=== PATIENT | female | born 1955 | race African-American/Black ===

== ENCOUNTER 2017-02-26 08:22 | Inpatient (IN) ==
[2017-02-26] MEDS ORDERED: SODIUM CHLORIDE 0.9% 1,000 ML IV STA (08:40)
[2017-02-26] MEDS ORDERED: PANTOPRAZOLE 40 MG VIAL IV STA (08:40)
[2017-02-26] MEDS ORDERED: PANTOPRAZOLE 40 MG VIAL IV ONE (08:51)
--- NOTE | 2017-02-26 09:16 | XRay Report ---
Single view the chest. Indication: Shortness of breath. Comparison: October 22, 2016. The heart is normal in size. The pulmonary vasculature is normal. The lung solorzano are mildly hyperexpanded. There is an increase in interstitial markings, identical to the previous study, consistent with scarring. No consolidation, pneumothorax, or pleural effusion. Impression: Chronic lung changes. No acute abnormality. PROCEDURE INTERPRETED AT [facility] DEPARTMENT OF RADIOLOGY Final Report Signed by: Dr. Anna Valdez
--- NOTE | 2017-02-26 09:18 | EKG Report ---
Stationary ECG Study [facility] ER Test Date: 02/26/2017 9:15:23 AM Pat Name: TIERA BORREGO Department: Room: Gender: F Web Operations Specialist: RUDOLPH : 1955 Requested by: Onur Cornell Order Number: [id number] Reading MD: SRINIVAS NARANJO Intervals [place] Rate: 83 P: 72 RI: 172 QRS: 30 QRSD: 85 T: 62 QT: 399 QTc: 438 Interpretive Statements SINUS RHYTHM Electronically Signed On 03-02-17 22:07:49 CDT by SRINIVAS NARANJO [email or web address]
--- NOTE | 2017-02-26 09:18 | XRay Report ---
Abdomen series with decubitus films. Indication: Generalized abdominal pain. Comparison: October 23, 2016. Within the lung bases, there are changes suggesting honeycombing, better appreciated on the abdomen film than the chest x-ray. No intra-abdominal organomegaly is seen. There is a air in normal caliber small and large intestine, with a few air-fluid levels, and no evidence of obstruction or free air. The osseous structures are diffusely demineralized. Degenerative changes are present at the right hip. Impression: Chronic lung changes at the bases. Mild ileus. PROCEDURE INTERPRETED AT [facility] DEPARTMENT OF RADIOLOGY Final Report Signed by: Dr. Anna Valdez
--- NOTE | 2017-02-26 09:20 | Emergency Department Note ---
Ronald Gordillo Ashley, am scribing for, and in the presence of, Onur Iqbal MD 08 :51. Farida Gordillo James D, MD, personally performed the services described in this documentation, ascribed by Shanel Cardenas in my presence, and it is both accurate and complete 920 . Arrival - Arrival Chief Complaint: GI Bleed/Rectal Stated Complaint: gi bleed ED Nursing Triage Note: Pt states that she started having some nausea and vomiting with chills - pt has black stools - pt denies abd pain - pt has seen Dr Rajan in the past for this same c/o Mode of Arrival: Stretcher Time Seen by Provider: 02/26/17 08:37 - History of Present Illness HPI Narrative: Ms. 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 She reports having the same symptoms in the past with a small bowel ANV rupture, which required blood transfusions and surgical cauterization by Dr. Rajan. She states "I still have 3 AVNs that have not been fixed." She denies SOB, CP, n/v, fever, headache, and dysuria. Allergies/Adverse Reactions: Allergies Allergy/AdvReac Type Severity Reaction Status Date / Time Penicillins Allergy Unknown/Unable Verified 07/21/16 19:53 to obtain Home Medications: Home Medications Medication Instructions Recorded Confirmed Type Duloxetine HCl [Cymbalta] 60 mg PO QOTHER DAY 04/25/15 02/26/17 History Ferrous Gluconate 324 mg PO BID 04/25/15 02/26/17 History HYDROcodone/ACETAMIN 10-325 [[place] 1 tablet PO Q6H PRN 04/25/15 02/26/17 History 10-325] Hydroxychloroquine [Plaquenil] 200 mg PO DAILY 04/25/15 02/26/17 History LORazepam TAB [Ativan Tab] 1 mg PO ONCE PRN 04/25/15 02/26/17 History Omeprazole [Prilosec] 20 mg PO BID 04/25/15 02/26/17 History Valsartan [Diovan] 160 mg PO QAM 04/25/15 02/26/17 History Zolpidem Tartrate 10 mg PO BEDTIME PRN 04/25/15 02/26/17 History Mycophenolate Mofetil [Cellcept] 500 mg PO QOTHER DAY 07/14/16 02/26/17 History Rosuvastatin [Crestor] 10 mg PO BEDTIME 07/14/16 02/26/17 History Aspirin [Ecotrin] 81 mg PO QAM 10/20/16 02/26/17 History Amitriptyline [Elavil] 75 mg PO BEDTIME 10/22/16 02/26/17 History Naltrexone HCl [Revia] 50 mg PO DAILY 10/22/16 02/26/17 History Pregabalin [Lyrica] 75 mg PO QOTHER DAY 10/22/16 02/26/17 History Quetiapine Fumarate [Quetiapine 100 mg PO BEDTIME PRN 02/26/17 02/26/17 History Fumarate] Review of System - Review of System Constitutional: Present: weakness. Absent: chills, fever Eyes: Absent: discharge, vision change Head/Ears/Nose/Throat: Present: see HPI Respiratory: Absent: cough, respiratory distress Cardiovascular: Absent: chest pain, palpitations Gastrointestinal: Present: abdominal pain, melena. Absent: nausea, vomiting, hematemesis Genitourinary female: Absent: dysuria, hematuria Musculoskeletal: Absent: back pain, neck pain Skin: Absent: rash, lesions Neurological: Absent: headache, weakness, numbness, paresthesias Psychiatric: Present: as per HPI Endocrine: Present: as per HPI Hematological/Lymphatic: Present: as per HPI Medical,Surgical,& Family Hx - Medical History Cardio: History of: CHF, Hypertension, Cardiovascular Problems (CHF) No history of: [place] Psychological: History of: Depression Neurology: History of: Cerebrovascular Accident (mini stroke) No history of: Seizures Endocrine: History of: Thyroid Disorder Rheumatology: History of;: Fibromyalgia, Myasthenia Gravis (diagnosis several years ago), Rheumatoid Arthritis, Systemic Lupus Erythematosus, Rheumatological Problems (Lupus) Respiratory: History of: Pneumonia, Respiratory Problems Gastrointestinal: History of: GERD, Gastrointestinal Bleed (Small bowel AVMs) Musculoskeletal: No history of: Amputation Hematology: History of: Anemia Reproductive: History of: Ovarian Cysts Other: History of: Miscellaneous Medical Problems (lupus) - Surgical History Cardiac Surgeries: Patient Denies: Cardiac Catheterization Thoracic Surgeries: Patient denies;: Organ Transplant, Lobectomy Neurologic Surgeries: Patient denies: Neurologic Surgery HEENT Surgeries: Patient denies: Tonsilectomy & Adenoidectomy Abdominal Surgeries: Patient denies: Abdominal Surgery Reproductive Surgeries: Surgical HX of;: Hysterectomy Patient denies;: Genitourinary Surgery Additional Surgical History: Small bowel AVN carterized. - Family History Family History: Reports;: Family Anesthesia Reaction (dad), Family Hypertension , Family Psychiatric Problems (Mother dementia) Denies;: Family Stroke - Social History Smoking Status: Never smoker Frequency of Alcohol Use: None Type of Drug Use: None Marital Status: Lives With:: Spouse Functional capacity: independent ambulation Exam Vital Signs: Vital Signs Temperature 96.0 F L 02/26/17 08:38 Pulse Rate 95 H 02/26/17 11:00 Respiratory Rate 18 02/26/17 11:00 Blood Pressure 120/44 02/26/17 11:00 O2 Sat by Pulse Oximetry 100 02/26/17 11:00 - General General appearance: alert, in no apparent distress - Head Head exam: Present: atraumatic, normocephalic, normal inspection - Eye Eye exam: Present: PERRL, EOMI, other (conjunctival pallor) - ENT ENT exam: Present: mucous membranes dry, other (Pale muscous membranes) - Neck Neck exam: Present: normal inspection, full ROM, trachea midline - Chest Chest inspection: Present: normal inspection, symmetric chest wall rise - Respiratory Respiratory exam: Present: normal lung sounds bilaterally. Absent: rales, rhonchi, wheezes - Cardiovascular Cardiovascular exam: Present: regular rate, normal rhythm, normal heart sounds - Abdominal Exam Abdominal exam: Absent: soft, distention, tenderness, guarding, rebound, rigidity - Extremities Exam Extremities exam: Present: normal inspection, full ROM - Back Exam Back exam: Present: normal inspection, full ROM - Neurological Exam Neurological exam: Present: alert, oriented X3, CN II-XII intact - Psychiatric Psychiatric exam: Present: normal affect, normal mood - Skin Skin exam: Present: warm, dry, pallor Course - Consultations Consultation #1: 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 Time: 09:47 Consultation #2: Discussed with hospitalist. Patient will be admitted to their service. Time: 11:21 Results - Labs CBC & BMP: 02/26/17 10:44 Lab Results: I have reviewed the patients labs Labs: Laboratory Tests 02/26/17 11:13 INR 1.1 - EKG EKG results: interpreted by ERMD - Impressions EKG: Normal sinus rhythm with a rate of 83, nonspecific ST-T wave changes, normal axis. - Diagnostic Findings Procedure: Abdominal x-ray: image reviewed by me (Nonspecific gas pattern, no free air, gas in the rectum), Chest x-ray: image reviewed by me (No cardiomegaly , no pleural effusions, no infiltrates.) Disposition Clinical Impression: Upper GI bleed, Small bowel arteriovenous malformation, Anemia Case discussed with: patient, patient's family Disposition: Still a Patient Condition: Stable Time of Disposition: 11:20
[2017-02-26 10:54] LABS: Basophils % 0.2 % (0.0-0.8); Eosinophils # 0.1 10*3/uL (0.0-0.87); Eosinophils % 0.5 % (0.00-10.9); Hematocrit 26.5 VOL% (35.7-47.0); Hemoglobin 8.5 GM/DL (12.0-16.0); Immature Granulocytes % 3.5 %; Immature Granulocytes Absolute 0.33 #; Lymphocytes % 10.6 % (21.3-54.2); Mean Corpuscular HGB Conc 32.1 GM/DL (32-36); Mean Corpuscular Hemoglobin 26 PG (27-34); Mean Corpuscular Volume 79.8 FL (87-102); Mean Platelet Volume 10.4 FL (9.6-12.0); Monocytes # 0.7 10*3/uL (0.11-0.8); Monocytes % 6.9 % (1.7-12.7); Neutrophils # 7.5 10*3/uL (1.4-7.4); Neutrophils % 78.3 % (38.7-73.9); Platelet Count 221 T/CUMM (130-400); Red Blood Count 3.32 MC/CUMM (3.8-5.5); Red Cell Distribution Width 12.7 % (9.3-17.3); White Blood Count 9.5 T/CUMM (4-12)
[2017-02-26 11:01] LABS: INR 1.1; PT Patient Result 11.3 SECS; Partial Thromboplastin Time 22.4 SECS (0-40)
[2017-02-26 11:25] LABS: Alanine Aminotransferase 13 U/L (13-56); Albumin 2.6 G/DL (3.4-5.0); Alkaline Phosphatase 75 U/L (45-117); Aspartate Amino Transferase 9 U/L (0-37); Bilirubin,Total < 0.39 MG/DL (0.2-1.0); Blood Urea Nitrogen 51 MG/DL (7-18); Calcium 7.7 MG/DL (8.5-10.1); Glucose 98 MG/DL (74-106); Osmolality,Calculated 296.1 MOS/KG (273-304); Potassium 4.7 MMOL/L (3.5-5.1); Sodium 142 MMOL/L (136-145); Total Protein 5.3 G/DL (6.4-8.3)
--- NOTE | 2017-02-26 13:03 | Gastrointestinal Consult Note ---
<Bridget Kelly - Last Filed: 02/26/17 12:54> Assessment and Plan (1) Melena Status: Acute Assessment and plan: 4/5-onset of dark tarry stools on yesterday with lower abdominal pain and cramping. 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 Last endoscopy September 2016 with treatment of AVMs. Hemoglobin 8.6. Continue to monitor serial hemoglobin and transfuse as needed. Plan for EGD tomorrow morning to further evaluate. If active bleeding began's, obtain stat CT bleeding scan. Plan an addendum to follow by Dr. Rajan per Current Visit: Yes (2) Symptomatic anemia Status: Resolved Current Visit: No History of Present Illness Chief complaint: Melena, anemia History of present illness: Ms. Ray is a 61 year old female who presented to the hospital with onset of dizziness, melena, and generalized weakness. Patient states that Friday she began not feeling very well and had some episodes of being lightheaded. She also reports just generally not feeling well and having some weakness. This continued until yesterday when she had onset of dark tarry stools. She also had some nausea without vomiting but does report having frequent regurgitation every time she tried to eat or drink something. Patient states she became very dizzy and weak this morning and her called an ambulance. She states when EMS arrived her blood pressure was 60/40. She has a history of CKD, lupus , as well as small bowel AVMs. She denies any shortness of breath, chest pain, fever, or chills. She denies any recent weight loss. She states she has had some lower abdominal discomfort since onset as well as some low back pain. Denies symptoms of UTI at present. Denies hematochezia. Denies vomiting. Denies NSAID use. States that this episode feels very similar to the episodes in the past in which she presented with anemia and AVM bleeding. She was last admitted in September of last year with GI bleed and underwent EGD at that time. She was found to have small bowel AVMs with destruction and clipping. Prior to this in June of last year she had a small bowel endoscopy done with findings of recurrent bleeding from duodenal AVMs with no active bleeding, submucosal duodenal lesion without bleeding. Last colonoscopy noted in April 2015 with findings of diverticulosis. Hemoglobin on admission is 8.5. BUN/ creatinine ratio 39. Last known hemoglobin in October of last year 8.9 on discharge from inpatient stay. Patient has a history of blood transfusions in the past related to the AVMs. Home Medications Medication Instructions Recorded Confirmed Type Duloxetine HCl [Cymbalta] 60 mg PO QOTHER DAY 04/25/15 02/26/17 History Ferrous Gluconate 324 mg PO BID 04/25/15 02/26/17 History HYDROcodone/ACETAMIN 10-325 [[place] 1 tablet PO Q6H PRN 04/25/15 02/26/17 History 10-325] Hydroxychloroquine [Plaquenil] 200 mg PO DAILY 04/25/15 02/26/17 History LORazepam TAB [Ativan Tab] 1 mg PO ONCE PRN 04/25/15 02/26/17 History Omeprazole [Prilosec] 20 mg PO BID 04/25/15 02/26/17 History Valsartan [Diovan] 160 mg PO QAM 04/25/15 02/26/17 History Zolpidem Tartrate 10 mg PO BEDTIME PRN 04/25/15 02/26/17 History Mycophenolate Mofetil [Cellcept] 500 mg PO QOTHER DAY 07/14/16 02/26/17 History Rosuvastatin [Crestor] 10 mg PO BEDTIME 07/14/16 02/26/17 History Aspirin [Ecotrin] 81 mg PO QAM 10/20/16 02/26/17 History Amitriptyline [Elavil] 75 mg PO BEDTIME 10/22/16 02/26/17 History Naltrexone HCl [Revia] 50 mg PO DAILY 10/22/16 02/26/17 History Pregabalin [Lyrica] 75 mg PO QOTHER DAY 10/22/16 02/26/17 History Quetiapine Fumarate [Quetiapine 100 mg PO BEDTIME PRN 02/26/17 02/26/17 History Fumarate] Allergies Allergy/AdvReac Type Severity Reaction Status Date / Time Penicillins Allergy Unknown/Unable Verified 07/21/16 19:53 to obtain Medical,Surgical,& Family Hx - Medical History Cardio: History of: CHF, Hypertension, Cardiovascular Problems (CHF) No history of: [place] Psychological: History of: Depression Neurology: History of: Cerebrovascular Accident (mini stroke) No history of: Seizures Endocrine: History of: Thyroid Disorder Rheumatology: History of;: Fibromyalgia, Myasthenia Gravis (diagnosis several years ago), Rheumatoid Arthritis, Systemic Lupus Erythematosus, Rheumatological Problems (Lupus) Respiratory: History of: Pneumonia, Respiratory Problems Gastrointestinal: History of: GERD, Gastrointestinal Bleed (Small bowel AVMs) Musculoskeletal: No history of: Amputation Hematology: History of: Anemia Reproductive: History of: Ovarian Cysts Other: History of: Miscellaneous Medical Problems (lupus) - Surgical History Cardiac Surgeries: Patient Denies: Cardiac Catheterization Thoracic Surgeries: Patient denies;: Organ Transplant, Lobectomy Neurologic Surgeries: Patient denies: Neurologic Surgery HEENT Surgeries: Patient denies: Tonsilectomy & Adenoidectomy Abdominal Surgeries: Patient denies: Abdominal Surgery Reproductive Surgeries: Surgical HX of;: Hysterectomy Patient denies;: Genitourinary Surgery - Family History Family History: Reports;: Family Anesthesia Reaction (dad), Family Hypertension , Family Psychiatric Problems (Mother dementia) Denies;: Family Stroke - Social History Smoking Status: Never smoker Frequency of Alcohol Use: None Type of Drug Use: None 12 point system: reviewed and no additional remarkable complaints except as stated - Constitutional Constitutional: Present: as per HPI, lethargy, weakness - EENT Eyes: Present: as per HPI Ears: Present: as per HPI Nose, mouth and throat: Present: as per HPI - Cardiovascular Cardiovascular: Present: as per HPI - Respiratory Respiratory: Present: as per HPI - Gastrointestinal Gastrointestinal: Present: as per HPI, nausea - Genitourinary Genitourinary: Present: as per HPI - Musculoskeletal Musculoskeletal: Present: as per HPI - Neurological Neurological: Present: as per HPI, dizziness - Psychiatric Psychiatric: Present: as per HPI - Endocrine Endocrine: Present: as per HPI - Hematologic/Lymphatic Hematologic/Lymphatic: Present: as per HPI Exam - Constitutional Vitals: Period Temp Pulse Resp BP Sys/Landa Pulse Ox Last 24 Hr 90 18 103/45 100 General appearance: normal weight, no acute distress - Head Head exam: Present: normal inspection, normocephalic - Eye Eye exam: Present: other (Lids and conjunctivae unremarkable). Absent: scleral icterus - ENT ENT exam: Present: normal exam, normal oropharynx - Neck Neck exam: Present: normal inspection - Respiratory Respiratory exam: Present: clear to auscultation bilaterally. Absent: rales, rhonchi, wheezes - Cardiovascular Cardiovascular exam: Present: regular rate and rhythm. Absent: diastolic murmur , JVD, systolic murmur - GI/Abdominal GI/Abdominal exam: Present: normal bowel sounds, soft. Absent: ascites, distended, mass, organomegaly, tenderness - Extremities Exam Extremities exam: Present: normal inspection, full ROM - Back Exam Back exam: Present: normal inspection - Neurological Exam Neurological exam: Present: alert, oriented X3 - Psychiatric Psychiatric exam: Present: normal affect, normal mood - Skin Skin exam: Present: normal color, warm, dry Results - Labs CBC & BMP: 02/26/17 10:44 02/26/17 10:44 Lab Results: I have reviewed the past 24 hour labs <Santiago Rajan - Last Filed: 02/26/17 18:50> History of Present Illness History of present illness: Ms. Ray is a 61 year old female Exam - Constitutional Vitals: Period Temp Pulse Resp BP Sys/Landa Pulse Ox Last 24 Hr 97.4 F-98.7 F 76-98 16-18 102-114/45-75 100-100 Results - Labs CBC & BMP: 02/26/17 13:23 02/26/17 10:44
[2017-02-26 13:47] LABS: Hematocrit 28.8 VOL% (35.7-47.0); Hemoglobin 9.2 GM/DL (12.0-16.0)
--- NOTE | 2017-02-26 13:49 | Hospitalist History & Physical ---
<Consuelo Jonesda - Last Filed: 02/26/17 13:32> Assessment and Plan (1) Anemia Status: Acute Assessment and plan: Will recheck H/H in AM. Will transfuse if needed. Current Visit: Yes Qualifiers: Anemia type: unspecified type Qualified Code(s): D64.9 - Anemia, unspecified (2) Melena Status: Acute Assessment and plan: Will admit under the hospitalist services. We will replace volume, start PPI's, and VTE prophylaxis. Will consult GI, Hematology, and Cardiology to assist in the management of this patient. Will obtain CBC in AM; will transfuse if needed. Current Visit: Yes History of Present Illness Chief complaint: "bloody stools" History of present illness: This is a very pleasant 61 year old female that presented to the ED this morning with a chief compliant of bloody stools. She has a rather impressive medical history of small bowel AVM, systemic lupus erythematosus, rheumatoid arthritis, heart failure, and Stage II kidney disease. She reports an onset of bloody stools on Friday. She reports the stools started sporadically; then gradually increased this morning. She reported at least 3 stools this morning; in which she became weak. She had to be assisted by her to the toilet and then became so weak that she was unable to get up. Her called for emergency assistance and she was transported to [facility] for further evaluation. Upon arrival, she was found to be mildly hypotensive with SBP in the 90's. Her volume was replaced and her blood pressures improved. Her H/H was 8.5/26.5 at the time of arrival. After further discussion with Dr. Iqbal, it was determined that the patient required inpatient admission for evaluation of lower gastrointestinal bleed, hypotension, and acute blood loss. We will consult Dr. Payan and Dr. Butler, both are known to this patient to aid in the management of this patient. Home Medications Medication Instructions Recorded Confirmed Type Duloxetine HCl [Cymbalta] 60 mg PO QOTHER DAY 04/25/15 02/26/17 History Ferrous Gluconate 324 mg PO BID 04/25/15 02/26/17 History HYDROcodone/ACETAMIN 10-325 [[place] 1 tablet PO Q6H PRN 04/25/15 02/26/17 History 10-325] Hydroxychloroquine [Plaquenil] 200 mg PO DAILY 04/25/15 02/26/17 History LORazepam TAB [Ativan Tab] 1 mg PO ONCE PRN 04/25/15 02/26/17 History Omeprazole [Prilosec] 20 mg PO BID 04/25/15 02/26/17 History Valsartan [Diovan] 160 mg PO QAM 04/25/15 02/26/17 History Zolpidem Tartrate 10 mg PO BEDTIME PRN 04/25/15 02/26/17 History Mycophenolate Mofetil [Cellcept] 500 mg PO QOTHER DAY 07/14/16 02/26/17 History Rosuvastatin [Crestor] 10 mg PO BEDTIME 07/14/16 02/26/17 History Aspirin [Ecotrin] 81 mg PO QAM 10/20/16 02/26/17 History Amitriptyline [Elavil] 75 mg PO BEDTIME 10/22/16 02/26/17 History Naltrexone HCl [Revia] 50 mg PO DAILY 10/22/16 02/26/17 History Pregabalin [Lyrica] 75 mg PO QOTHER DAY 10/22/16 02/26/17 History Quetiapine Fumarate [Quetiapine 100 mg PO BEDTIME PRN 02/26/17 02/26/17 History Fumarate] Allergies Allergy/AdvReac Type Severity Reaction Status Date / Time Penicillins Allergy Unknown/Unable Verified 07/21/16 19:53 to obtain Medical,Surgical,& Family Hx - Medical History Cardio: History of: CHF, Hypertension, Cardiovascular Problems (CHF) No history of: [place] Psychological: History of: Depression Neurology: History of: Cerebrovascular Accident (mini stroke) No history of: Seizures Endocrine: History of: Thyroid Disorder Rheumatology: History of;: Fibromyalgia, Myasthenia Gravis (diagnosis several years ago), Rheumatoid Arthritis, Systemic Lupus Erythematosus, Rheumatological Problems (Lupus) Respiratory: History of: Pneumonia, Respiratory Problems Gastrointestinal: History of: GERD, Gastrointestinal Bleed (Small bowel AVMs) Musculoskeletal: No history of: Amputation Hematology: History of: Anemia Reproductive: History of: Ovarian Cysts Other: History of: Miscellaneous Medical Problems (lupus) - Surgical History Cardiac Surgeries: Patient Denies: Cardiac Catheterization Thoracic Surgeries: Patient denies;: Organ Transplant, Lobectomy Neurologic Surgeries: Patient denies: Neurologic Surgery HEENT Surgeries: Patient denies: Tonsilectomy & Adenoidectomy Abdominal Surgeries: Patient denies: Abdominal Surgery Reproductive Surgeries: Surgical HX of;: Hysterectomy Patient denies;: Genitourinary Surgery Orthopedic Surgeries: Surgical HX of;: Orthopedic Surgery (carpal tunnel bilat hands) - Family History Family History: Reports;: Family Anesthesia Reaction (dad), Family Hypertension , Family Psychiatric Problems (Mother dementia) Denies;: Family Stroke - Social History Smoking Status: Never smoker Frequency of Alcohol Use: None Type of Drug Use: None - Constitutional Constitutional: Present: fatigue, malaise, weakness - Respiratory Respiratory: Absent: cough, dyspnea, wheezing, snoring - Gastrointestinal Gastrointestinal: Present: abdominal pain, change in bowel habits, cramping, diarrhea, melena. Absent: heartburn, vomiting - Genitourinary Genitourinary: Present: as per HPI - Musculoskeletal Musculoskeletal: Present: as per HPI - Neurological Neurological: Present: as per HPI - Psychiatric Psychiatric: Present: as per HPI - Endocrine Endocrine: Present: as per HPI - Hematologic/Lymphatic Hematologic/Lymphatic: Present: as per HPI Exam - Constitutional Vitals: Period Temp Pulse Resp BP Sys/Landa Pulse Ox Last 24 Hr 98.7 F 88-98 18-18 102-111/45-75 100-100 General appearance: normal weight, no acute distress - Head Head exam: Present: normal inspection, normocephalic, atraumatic - Eye Eye exam: Present: EOMI Pupils: Present: LISA - ENT ENT exam: Present: normal exam - Neck Neck exam: Present: normal inspection. Absent: lymphadenopathy, meningismus, tenderness, thyromegaly - Respiratory Respiratory exam: Present: clear to auscultation bilaterally. Absent: rales, rhonchi, stridor, wheezes - Cardiovascular Cardiovascular exam: Present: regular rate and rhythm. Absent: carotid bruit, diastolic murmur, gallop, JVD, rubs, systolic murmur - GI/Abdominal GI/Abdominal exam: Present: normal bowel sounds, tenderness - Extremities Exam Extremities exam: Present: normal inspection, full ROM - Back Exam Back exam: Present: normal inspection - Neurological Exam Neurological exam: Present: alert, oriented X3, CN II-XII intact - Psychiatric Psychiatric exam: Present: normal affect - Skin Skin exam: Present: normal color, dry, erythema Results - Labs CBC & BMP: 02/26/17 10:44 02/26/17 10:44 Lab Results: I have reviewed the past 24 hour labs <Lorraine Dupree - Last Filed: 02/26/17 15:59> Assessment and Plan (1) Lupus Status: Chronic Current Visit: No History of Present Illness History of present illness: Patient seen and examined along with FROILAN Jones, agree with history, assessment and plan as documented. GI, Dr. Rajan, consulted. Plan for EGD tomorrow. - EENT Eyes: Absent: blurry vision Ears: Absent: ear pain Nose, mouth and throat: Absent: nasal congestion - Genitourinary Genitourinary: Absent: difficulty urinating, hematuria - Musculoskeletal Musculoskeletal: Absent: back pain, joint swelling - Neurological Neurological: Absent: behavioral changes, confusion - Psychiatric Psychiatric: Absent: anxiety, depression - Endocrine Endocrine: Absent: cold intolerance, heat intolerance - Hematologic/Lymphatic Hematologic/Lymphatic: Absent: easy bleeding, easy bruising Exam - Constitutional Vitals: Period Temp Pulse Resp BP Sys/Landa Pulse Ox Last 24 Hr 98.7 F 88-98 18-18 102-111/45-75 100-100 Results - Labs CBC & BMP: 02/26/17 13:23 02/26/17 10:44
[2017-02-26] MEDS ORDERED: LORazepam 1 MG TABLET PO PRN (15:59)
[2017-02-26] MEDS: MYCOPHENOLATE MOFETIL 250 MG CAPSULE PO SCH (16:26)
[2017-02-26] MEDS: PREGABALIN 75 MG CAPSULE PO SCH ×2 (16:27→17:22)
[2017-02-26] MEDS: DULoxetine 30 MG CAPSULE PO SCH (16:27)
--- NOTE | 2017-02-26 17:46 | Oncology Consult Note ---
History of Present Illness History of present illness: Ms. Ray is a 61 year old female who is known to me. 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 She was admitted at this time with worsening anemia. She has a history of AV malformations and she reports melanotic stools this morning and a near syncopal episode. On this admission her white cell count was normal at 9500. She had a hemoglobin of 8.5. Her platelet count was 221,000. Her MCV was low at 79.8 with an RDW that was normal at 12.7. Her INR was 1.1. Her comprehensive metabolic profile includes a slightly high serum creatinine of 1.3 with a urea nitrogen of 51. Her serum albumin is 2.6. Review of systems: Constitutional: Positive for fatigue and generalized weakness. ENT: Positive for left 7th cranial nerve herpes zoster with pain Eyes: Positive for dry eyes and redness and also at times excessive tearing. Also positive for diplopia since the patient suffered a stroke. Respiratory: Positive for dyspnea with exertion. Cardiovascular: Positive for thrombotic stroke that has partially improved. GI: Positive for GI bleeding, melena, hematochezia, bloating and esophageal reflux. : Positive for mild chronic renal failure that is probably multifactorial. Endocrine: Positive for generalized weakness as well as for insomnia. Neurologic: Positive for right-sided facial paresis and diplopia. Also positive for near syncope and paresthesias. Psychiatric: Positive for insomnia Skin: Positive for alopecia. Musculoskeletal: Positive for multiple bone and joint arthritis, especially in her hands, severe. Physical examination: General: The patient appears chronically ill. Eyes: She has had cataract surgery. Lids and conjunctivae are normal she has some scarring of the face around her left eye from previous herpes zoster. ENT: Her oral mucosa and pharynx are normal. Her hearing is normal. Neck: Midline. I feel no neck masses and her thyroid appears normal. Cardiovascular: Her heart rhythm is regular without murmur, gallop or rub. There is no jugular venous distention, clubbing, cyanosis or edema. Abdomen: There is no abdominal tenderness, organomegaly or ascites and I cannot palpate her spleen. Musculoskeletal: She has severe, debilitating rheumatologic changes in her hands and has had surgical procedures on her hands because of deformity. Neurologic: Cranial nerves II through XII are intact. No focal neurologic deficits. Breasts: Breast examination is deferred. Nodes: I palpate no submandibular, cervical, supraclavicular or axillary adenopathy. Skin: I see no acute rashes. Impression: I suspect that the patient is bleeding again from AV malformations. 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 She does appear to be dehydrated so I am going to order IV fluids on her overnight. We will also recheck lab work tomorrow. Thank you for consulting me. Home Medications Medication Instructions Recorded Confirmed Type Duloxetine HCl [Cymbalta] 60 mg PO QOTHER DAY 04/25/15 02/26/17 History Ferrous Gluconate 324 mg PO BID 04/25/15 02/26/17 History HYDROcodone/ACETAMIN 10-325 [[place] 1 tablet PO Q6H PRN 04/25/15 02/26/17 History 10-325] Hydroxychloroquine [Plaquenil] 200 mg PO DAILY 04/25/15 02/26/17 History LORazepam TAB [Ativan Tab] 1 mg PO ONCE PRN 04/25/15 02/26/17 History Omeprazole [Prilosec] 20 mg PO BID 04/25/15 02/26/17 History Valsartan [Diovan] 160 mg PO QAM 04/25/15 02/26/17 History Zolpidem Tartrate 10 mg PO BEDTIME PRN 04/25/15 02/26/17 History Mycophenolate Mofetil [Cellcept] 500 mg PO QOTHER DAY 07/14/16 02/26/17 History Rosuvastatin [Crestor] 10 mg PO BEDTIME 07/14/16 02/26/17 History Aspirin [Ecotrin] 81 mg PO QAM 10/20/16 02/26/17 History Amitriptyline [Elavil] 75 mg PO BEDTIME 10/22/16 02/26/17 History Naltrexone HCl [Revia] 50 mg PO DAILY 10/22/16 02/26/17 History Pregabalin [Lyrica] 75 mg PO QOTHER DAY 10/22/16 02/26/17 History Quetiapine Fumarate [Quetiapine 100 mg PO BEDTIME PRN 02/26/17 02/26/17 History Fumarate] Allergies Allergy/AdvReac Type Severity Reaction Status Date / Time Penicillins Allergy Unknown/Unable Verified 07/21/16 19:53 to obtain Medical,Surgical,& Family Hx - Medical History Cardio: History of: CHF, Hypertension, Cardiovascular Problems (CHF) No history of: MD Psychological: History of: Depression Neurology: History of: Cerebrovascular Accident (mini stroke) No history of: Seizures Endocrine: History of: Thyroid Disorder Rheumatology: History of;: Fibromyalgia, Myasthenia Gravis (diagnosis several years ago), Rheumatoid Arthritis, Systemic Lupus Erythematosus, Rheumatological Problems (Lupus) Respiratory: History of: Pneumonia, Respiratory Problems Gastrointestinal: History of: GERD, Gastrointestinal Bleed (Small bowel AVMs) Musculoskeletal: No history of: Amputation Hematology: History of: Anemia Reproductive: History of: Ovarian Cysts Other: History of: Miscellaneous Medical Problems (lupus) - Surgical History Cardiac Surgeries: Patient Denies: Cardiac Catheterization Thoracic Surgeries: Patient denies;: Organ Transplant, Lobectomy Neurologic Surgeries: Patient denies: Neurologic Surgery HEENT Surgeries: Patient denies: Tonsilectomy & Adenoidectomy Abdominal Surgeries: Patient denies: Abdominal Surgery Reproductive Surgeries: Surgical HX of;: Hysterectomy Patient denies;: Genitourinary Surgery Orthopedic Surgeries: Surgical HX of;: Orthopedic Surgery (carpal tunnel bilat hands) - Family History Family History: Reports;: Family Anesthesia Reaction (dad), Family Hypertension , Family Psychiatric Problems (Mother dementia) Denies;: Family Stroke - Social History Smoking Status: Never smoker Frequency of Alcohol Use: None Type of Drug Use: None Exam - Constitutional Vitals: Period Temp Pulse Resp BP Sys/Landa Pulse Ox Last 24 Hr 97.4 F-98.7 F 76-98 16-18 102-114/45-75 100-100 Results - Labs CBC & BMP: 02/28/17 05:32 02/28/17 05:32
[2017-02-26] MEDS: DEXT 5% NACL 0.45% KCL 20 MEQ 20 MEQ/1,000 ML BAG IV SCH (19:12)
[2017-02-26] MEDS: ROSUVASTATIN 10 MG TABLET PO SCH (21:08)
[2017-02-26] MEDS: FERROUS GLUCONATE 324 MG TABLET PO SCH (21:08)
[2017-02-26] MEDS: AMITRIPTYLINE 75 MG TABLET PO SCH (21:08)
[2017-02-26] MEDS: PANTOPRAZOLE 40 MG VIAL IV SCH (21:08)
[2017-02-26 22:21] LABS: Hematocrit 26.7 VOL% (35.7-47.0); Hemoglobin 8.5 GM/DL (12.0-16.0)
[2017-02-26] MEDS: ZALEPLON 5 MG CAPSULE PO PRN (23:44)
[2017-02-27 04:13] LABS: Basophils % 0.4 % (0.0-0.8); Eosinophils # 0.1 10*3/uL (0.0-0.87); Eosinophils % 2.5 % (0.00-10.9); Hematocrit 21.3 VOL% (35.7-47.0); Hemoglobin 6.8 GM/DL (12.0-16.0); Immature Granulocytes % 1.3 %; Immature Granulocytes Absolute 0.07 #; Lymphocytes # 1.4 10*3/uL (1.4-4.0); Lymphocytes % 26.4 % (21.3-54.2); Mean Corpuscular HGB Conc 31.9 GM/DL (32-36); Mean Corpuscular Hemoglobin 25 PG (27-34); Mean Corpuscular Volume 79.5 FL (87-102); Mean Platelet Volume 10.2 FL (9.6-12.0); Monocytes # 0.5 10*3/uL (0.11-0.8); Monocytes % 9.5 % (1.7-12.7); Neutrophils # 3.2 10*3/uL (1.4-7.4); Neutrophils % 59.9 % (38.7-73.9); Platelet Count 192 T/CUMM (130-400); Red Blood Count 2.68 MC/CUMM (3.8-5.5); Red Cell Distribution Width 12.7 % (9.3-17.3); White Blood Count 5.3 T/CUMM (4-12)
[2017-02-27 04:52] LABS: Albumin 2.8 G/DL (3.4-5.0); Bilirubin,Total 0.6 MG/DL (0.2-1.0); Calcium 7.8 MG/DL (8.5-10.1); Magnesium 1.6 MG/DL (1.8-2.4); Osmolality,Calculated 288.4 MOS/KG (273-304); Phosphorous 2.2 MG/DL (2.5-4.9); Potassium 4.5 MMOL/L (3.5-5.1); Total Protein 5.4 G/DL (6.4-8.3)
[2017-02-27 04:58] LABS: Ferritin 20.8 ng/ml (8-252)
[2017-02-27] MEDS: DEXT 5% NACL 0.45% KCL 20 MEQ 20 MEQ/1,000 ML BAG IV SCH ×2 (05:19→15:06)
[2017-02-27] MEDS ORDERED: SODIUM CHLORIDE 0.9% 250 ML IV PRN ×2 (06:10→09:32)
--- NOTE | 2017-02-27 09:31 | Oncology Progress Note ---
Oncology Subjective PN Interval history: Lab work today includes a white cell count of 5300. Her hemoglobin is down to 6.8. I am ordering additional transfusions. Her INR is 1.1. A B12 level is 406. Her serum iron is 90 with a total iron- binding capacity of 300. See my orders. Exam - Constitutional Vitals: Period Temp Pulse Resp BP Sys/Landa Pulse Ox Last 24 Hr 97.0 F-98.7 F 76-110 16-20 96-146/45-85 91-100 Results - Labs CBC & BMP: 02/27/17 03:43 02/27/17 03:41
--- NOTE | 2017-02-27 10:06 | History and Physical Update ---
History and Physical Update - Physical Exam Mental Status: alert and oriented Heart: regular rate and rhythm Lung: clear to auscultation Abdomen: within normal limits Vitals: within normal limits
--- NOTE | 2017-02-27 10:12 | Operative Note ---
Date of procedure: 02/27/17 Pre-op diagnosis: Recurrent GI bleeding with history of angiodysplasia Procedure: EGD 61-year-old female with history of GI bleeding secondary to angiodysplasia now with worsening anemia for repeat EGD. Informed symptoms obtained the patient She was sedated with MAC anesthesia per anesthesia protocol. Patient placed left lateral decubitus position the Olympus flexible video upper endoscope was inserted oral cavity under direct vision the esophagus intubated. Findings: Esophagus-normal esophageal mucosa in the distal esophagus there is a moderate hiatal hernia distal esophageal stricture no significant esophagitis varices or Anderson's were identified. It was elected to not dilate this since it is clinically asymptomatic at this time. Stomach-normal insufflation no significant blood is present. Scattered AVMs are noted with no active bleeding. No ulcers are seen to direct retroflexed views of the body, fundus cardia or antrum of the stomach. Pylorus-normal Duodenum-normal for the bulb and duodenum to the third portion of the duodenum with no blood being seen. In the third portion of the duodenum there is a submucosal area that is unusual in appearance with no evidence of active bleeding. This lesion measured about 1 cm again is in the third portion of duodenum etiology is unclear no biopsies were taken due to the fact that on illumination with narrowband imaging does appear to have a significant vascular component. Whether or not this could be an ongoing source of blood loss is unclear but is worrisome. This does not appear to be a malignancy but of course this cannot be excluded from the endoscopic appearance alone. If evidence of ongoing bleeding from this area should arise consideration of arteriogram for embolization might be entertained. The procedure terminated placed our procedure well she is discharged recovery in good condition. Postop diagnosis 1. Gastroesophageal reflux disease-continue PPI treatment antireflux precautions 2. Esophageal stricture dilate as needed 3. Recurrent GI bleeding with angiodysplasia no active bleeding seen on upper endoscopy. Repeat consideration of endoscopy of active bleeding is noted and consider bleeding scan. 4. Unusual small bowel vascular appearing lesion if active bleeding recurs consider arteriography for embolization. Anesthesia: MAC Surgeon / Physician: Santiago Rajan Estimated blood loss: none Specimens: none sent Condition: stable Disposition: post procedure unit Results - Labs CBC & BMP: 02/27/17 03:43 02/27/17 03:41 Discharge Plan - Discharge Medications No Action Omeprazole [Prilosec] 20 mg PO BID Hydroxychloroquine [Plaquenil] 200 mg PO DAILY HYDROcodone/ACETAMIN 10-325 [[place] 10-325] 1 tablet PO Q6H PRN PRN Reason: Pain Ferrous Gluconate 324 mg PO BID Valsartan [Diovan] 160 mg PO QAM LORazepam TAB [Ativan Tab] 1 mg PO ONCE PRN PRN Reason: Anxiety Zolpidem Tartrate 10 mg PO BEDTIME PRN PRN Reason: Sleep Duloxetine HCl [Cymbalta] 60 mg PO QOTHER DAY Rosuvastatin [Crestor] 10 mg PO BEDTIME Mycophenolate Mofetil [Cellcept] 500 mg PO QOTHER DAY Aspirin [Ecotrin] 81 mg PO QAM Pregabalin [Lyrica] 75 mg PO QOTHER DAY Amitriptyline [Elavil] 75 mg PO BEDTIME Naltrexone HCl [Revia] 50 mg PO DAILY Quetiapine Fumarate [Quetiapine Fumarate] 100 mg PO BEDTIME PRN PRN Reason: Sleep - Follow Up or Referral - Forms/Instructions
--- NOTE | 2017-02-27 10:14 | Anesthesia ---
Anesthesia Post OP - Post Ansesthetic Evaluation Patient seen in post op: Yes Resp: within normal limits CV: within normal limits Mental: within normal limits Temp: within normal limits [id number]-[id number]: within normal limits Nausea and Vomiting: within normal limits Pain: within normal limits
[2017-02-27] MEDS ORDERED: HEPARIN LOCK FLUSH 500 UNIT/5 ML SYRINGE IV ONE (11:44)
--- NOTE | 2017-02-27 12:28 | Post Interventional Procedure ---
Pre-op diagnosis: GI bleed, no PIV access Post-op diagnosis: same Procedure: Rt IJ central line Flouroscopy: 0.1 min Radiologist: Delfino Beaver Anesthesia: local Specimens: none sent Estimated blood loss: none Complications: none Condition: stable
--- NOTE | 2017-02-27 13:38 | Interventional Radiology Rpt ---
IR fluoro guide cv cath, IR cvc insert nt >5, US guide vascular access Indication: Lupus. GI bleed. Transfusion requirement. Patient has had previous episodes of renal failure, therefore PICC line relatively contraindicated. CENTRAL LINE Description: A formal timeout was performed. Maximum sterile barrier technique was used. Sonographic evaluation of the right neck demonstrates patent and compressible internal jugular vein. The neck was prepped and draped in sterile fashion. 3 cc 1% lidocaine was administered subcutaneously. Under sonographic guidance, a micropuncture needle was advanced into the vein. A captured sonographic image documents the position of the needle. Needle was exchanged over a wire for a vascular dilator. A triple lumen central line was advanced until the tip was at the RA-SVC junction. The catheter depth was noted to be 17 cm. The position of the catheter was confirmed with fluoroscopic guidance and an image stored in PACS. The wire was removed. All 3 ports of the central line were aspirated and flushed with heparinized saline. The device was secured with suture, and a sterile dressing applied. Fluoroscopy: 0.2 minutes. Impression: Central ready for immediate use. Routine catheter care. PROCEDURE INTERPRETED AT [facility] DEPARTMENT OF RADIOLOGY Final Report Signed by: Delfino Beaver M.D.
--- NOTE | 2017-02-27 14:19 | Hospitalist Progress Note ---
Assessment and Plan (1) Lupus Status: Chronic Current Visit: No (2) Upper GI bleed Status: Acute Current Visit: Yes (3) Small bowel arteriovenous malformation Status: Acute Current Visit: Yes Hospitalist: Subjective Interval history: No acute events overnight. H/H down this morning. Receiving 2 units PRBCs. EGD today with GERD, esophageal stricture, angiodysplasia with no active bleeding. Will continue to monitor H/H. Exam - Constitutional Vitals: Period Temp Pulse Resp BP Sys/Landa Pulse Ox Last 24 Hr 96.6 F-98.6 F 74-110 11-25 96-163/41-85 91-100 General appearance: normal weight - Head Head exam: Present: normocephalic, atraumatic - Eye Eye exam: Present: EOMI Pupils: Present: LISA - ENT ENT exam: Present: normal exam - Neck Neck exam: Present: normal inspection - Respiratory Respiratory exam: Present: clear to auscultation bilaterally. Absent: rhonchi, wheezes - Cardiovascular Cardiovascular exam: Present: regular rate and rhythm - GI/Abdominal GI/Abdominal exam: Present: normal bowel sounds, soft. Absent: tenderness, rebound - Extremities Exam Extremities exam: Present: normal inspection - Back Exam Back exam: Present: normal inspection - Neurological Exam Neurological exam: Present: alert, oriented X3 - Psychiatric Psychiatric exam: Present: normal affect, normal mood - Skin Skin exam: Present: warm, intact Results - Labs CBC & BMP: 02/27/17 03:43 02/27/17 03:41
[2017-02-27] MEDS: FERROUS GLUCONATE 324 MG TABLET PO SCH ×2 (14:29→21:04)
[2017-02-27] MEDS: HYDROXYCHLOROQUINE 200 MG TABLET PO SCH (14:29)
[2017-02-27] MEDS: PREGABALIN 75 MG CAPSULE PO SCH (14:30)
[2017-02-27] MEDS: PANTOPRAZOLE 40 MG VIAL IV SCH ×2 (15:06→21:04)
[2017-02-27 17:48] LABS: Hematocrit 25.1 VOL% (35.7-47.0); Hemoglobin 8.3 GM/DL (12.0-16.0)
[2017-02-27] MEDS: ROSUVASTATIN 10 MG TABLET PO SCH (21:04)
[2017-02-27] MEDS: AMITRIPTYLINE 75 MG TABLET PO SCH (21:05)
[2017-02-27 23:58] LABS: Hematocrit 28.8 VOL% (35.7-47.0); Hemoglobin 9.4 GM/DL (12.0-16.0)
[2017-02-28] MEDS: DEXT 5% NACL 0.45% KCL 20 MEQ 20 MEQ/1,000 ML BAG IV SCH ×2 (06:47→18:16)
--- NOTE | 2017-02-28 06:52 | Gastrointestinal Progress Note ---
Assessment and Plan (1) AVM (arteriovenous malformation) of small bowel, acquired Status: Acute Assessment and plan: This patient is being seen for Dr. Rajan while he is off for the weekend. The patient has multiple AVMs noted and a vascular appearing lesion in the third portion of the duodenum that was not biopsied nor was his cauterized. She also has an incidental esophageal stricture that was not dilated due to lack of symptoms and diffuse stomach AVMs as well. She was not actively bleeding at the time of endoscopy. If she should start to bleed briskly, a tagged red blood cell scan and possible arterial embolization might become necessary versus repeated upper endoscopy with potential clipping versus BiCAP cautery versus argon plasma coagulation. Today's hematocrit is pending. If she is stable she might be able to be discharged by Friday or Friday from our standpoint. Current Visit: No (2) Upper GI bleed Status: Acute Assessment and plan: Patient seems stable at this point clinically we are awaiting today's hematocrit. Current Visit: Yes (3) Anemia Status: Acute Assessment and plan: Patient's hematocrit had dropped down to 21.3% at its carlos. We are rechecking status post 2 unit transfusion yesterday his hematocrit was up to 28.8% yesterday. Current Visit: Yes Qualifiers: Anemia type: unspecified type Qualified Code(s): D64.9 - Anemia, unspecified Gastroenterology - PN: Subj Interval history: Patient is having some mild infraumbilical pain that she thinks may be due to constipation. Will order her some MiraLAX. This patient is being seen for Dr. Rajan while he is off the weekend. She has not had any further bowel movements since arrival. She is taking her food and well. We are awaiting her laboratories from today, results of yesterday's endoscopy reviewed with the patient. Exam (Progress Note) - Constitutional Vitals: Period Temp Pulse Resp BP Sys/Landa Pulse Ox Last 24 Hr 96.6 F-98.7 F 63-110 - 96-163/41-88 92-100 - Head Head exam: Present: normocephalic, atraumatic - Eye Eye exam: Present: EOMI - Respiratory Respiratory exam: Present: clear to auscultation bilaterally. Absent: rhonchi, wheezes - Cardiovascular Cardiovascular exam: Present: regular rate and rhythm - GI/Abdominal GI/Abdominal exam: Present: normal bowel sounds, soft. Absent: distended, guarding, tenderness, rebound - Extremities Exam Extremities exam: Absent: edema - Psychiatric Psychiatric exam: Present: normal affect, normal mood - Skin Skin exam: Present: warm Results - Labs CBC & BMP: 02/27/17 23:20 02/27/17 03:41
[2017-02-28 06:57] LABS: Basophils % 0.6 % (0.0-0.8); Eosinophils # 0.2 10*3/uL (0.0-0.87); Eosinophils % 3.7 % (0.00-10.9); Hematocrit 29.3 VOL% (35.7-47.0); Hemoglobin 9.4 GM/DL (12.0-16.0); Immature Granulocytes % 1.2 %; Immature Granulocytes Absolute 0.06 #; Lymphocytes # 1.4 10*3/uL (1.4-4.0); Lymphocytes % 28.8 % (21.3-54.2); Mean Corpuscular HGB Conc 32.1 GM/DL (32-36); Mean Corpuscular Hemoglobin 27 PG (27-34); Mean Corpuscular Volume 83.5 FL (87-102); Mean Platelet Volume 10.6 FL (9.6-12.0); Monocytes # 0.5 10*3/uL (0.11-0.8); Monocytes % 10.1 % (1.7-12.7); Neutrophils # 2.7 10*3/uL (1.4-7.4); Neutrophils % 55.6 % (38.7-73.9); Platelet Count 150 T/CUMM (130-400); Red Blood Count 3.51 MC/CUMM (3.8-5.5); Red Cell Distribution Width 13.9 % (9.3-17.3); White Blood Count 4.8 T/CUMM (4-12)
[2017-02-28 07:16] LABS: Calcium 7.5 MG/DL (8.5-10.1); Magnesium 1.8 MG/DL (1.8-2.4); Osmolality,Calculated 288.1 MOS/KG (273-304)
--- NOTE | 2017-02-28 08:05 | Oncology Progress Note ---
Oncology Subjective PN Interval history: Patient with multiple rheumatologic disorders. I have been following her for immune hemolytic anemia and immune thrombocytopenia that she had in the past. She is admitted now with melena. She has been transfused and her hemoglobin this morning is 9.4. I believe she has had 3 units of packed red cells now. Exam - Constitutional Vitals: Period Temp Pulse Resp BP Sys/Landa Pulse Ox Last 24 Hr 96.0 F-98.7 F 63-88 11-25 99-163/41-88 92-100 Results - Labs CBC & BMP: 02/28/17 05:32 02/28/17 05:32
[2017-02-28] MEDS: PANTOPRAZOLE 40 MG VIAL IV SCH ×2 (08:35→21:23)
[2017-02-28] MEDS: MYCOPHENOLATE MOFETIL 250 MG CAPSULE PO SCH (08:35)
[2017-02-28] MEDS: FERROUS GLUCONATE 324 MG TABLET PO SCH ×2 (08:35→21:23)
[2017-02-28] MEDS: DULoxetine 30 MG CAPSULE PO SCH (08:35)
[2017-02-28] MEDS: HYDROXYCHLOROQUINE 200 MG TABLET PO SCH (08:36)
[2017-02-28] MEDS: POLYETHYLENE GLYCOL POWDER 17 GM PACK PO SCH ×2 (08:36→21:24)
--- NOTE | 2017-02-28 15:20 | Hospitalist Progress Note ---
Assessment and Plan (1) Lupus Status: Chronic Current Visit: No (2) Upper GI bleed Status: Acute Assessment and plan: EGD yesterday, no active bleeding seen. Patient has history of multiple AVMs. Current Visit: Yes (3) Small bowel arteriovenous malformation Status: Acute Current Visit: Yes Hospitalist: Subjective Interval history: Doing well today. No repeat episodes of bleeding. Responded appropriately to blood transfusion. Will monitor counts in am. Possible discharge soon if counts remain stable and no repeat bleeding. Exam - Constitutional Vitals: Period Temp Pulse Resp BP Sys/Landa Pulse Ox Last 24 Hr 96.0 F-98.7 F 63-78 16-20 112-149/52-88 93-100 General appearance: over weight - Head Head exam: Present: normocephalic, atraumatic - Eye Eye exam: Present: EOMI Pupils: Present: LISA - ENT ENT exam: Present: normal exam - Neck Neck exam: Present: normal inspection - Respiratory Respiratory exam: Present: clear to auscultation bilaterally. Absent: rhonchi, wheezes - Cardiovascular Cardiovascular exam: Present: regular rate and rhythm - GI/Abdominal GI/Abdominal exam: Present: normal bowel sounds, soft. Absent: tenderness, rebound - Extremities Exam Extremities exam: Present: normal inspection - Back Exam Back exam: Present: normal inspection - Neurological Exam Neurological exam: Present: alert, oriented X3 - Psychiatric Psychiatric exam: Present: normal affect, normal mood - Skin Skin exam: Present: warm, intact Results - Labs CBC & BMP: 02/28/17 05:32 02/28/17 05:32
[2017-02-28 16:34] LABS: Hemoglobin 9.7 GM/DL (12.0-16.0)
[2017-02-28] MEDS: AMITRIPTYLINE 75 MG TABLET PO SCH (21:23)
[2017-02-28] MEDS: ROSUVASTATIN 10 MG TABLET PO SCH (21:23)
[2017-03-01] MEDS: ZALEPLON 5 MG CAPSULE PO PRN ×2 (00:50→20:24)
[2017-03-01] MEDS: DEXT 5% NACL 0.45% KCL 20 MEQ 20 MEQ/1,000 ML BAG IV SCH ×2 (03:34→13:01)
[2017-03-01 07:14] LABS: Basophils % 0.4 % (0.0-0.8); Eosinophils # 0.2 10*3/uL (0.0-0.87); Eosinophils % 3.3 % (0.00-10.9); Hematocrit 26.4 VOL% (35.7-47.0); Hemoglobin 8.6 GM/DL (12.0-16.0); Immature Granulocytes % 1.5 %; Immature Granulocytes Absolute 0.08 #; Lymphocytes % 18.1 % (21.3-54.2); Mean Corpuscular HGB Conc 32.6 GM/DL (32-36); Mean Corpuscular Hemoglobin 27 PG (27-34); Mean Corpuscular Volume 82.2 FL (87-102); Mean Platelet Volume 10.4 FL (9.6-12.0); Monocytes # 0.4 10*3/uL (0.11-0.8); Monocytes % 7.6 % (1.7-12.7); Neutrophils # 3.7 10*3/uL (1.4-7.4); Neutrophils % 69.1 % (38.7-73.9); Platelet Count 146 T/CUMM (130-400); Red Blood Count 3.21 MC/CUMM (3.8-5.5); Red Cell Distribution Width 13.6 % (9.3-17.3); White Blood Count 5.4 T/CUMM (4-12)
[2017-03-01] MEDS: POLYETHYLENE GLYCOL POWDER 17 GM PACK PO SCH ×2 (08:31→20:25)
[2017-03-01] MEDS: PREGABALIN 75 MG CAPSULE PO SCH (08:32)
[2017-03-01] MEDS: PANTOPRAZOLE 40 MG VIAL IV SCH ×2 (08:32→20:25)
[2017-03-01] MEDS: FERROUS GLUCONATE 324 MG TABLET PO SCH ×2 (08:32→20:25)
[2017-03-01] MEDS: HYDROXYCHLOROQUINE 200 MG TABLET PO SCH (08:32)
[2017-03-01] MEDS: NALTREXONE 50 MG PO SCH ×2 (09:00→09:01)
[2017-03-01] MEDS ORDERED: MORPHINE 2 MG/1 ML SYRINGE IV PRN (12:02)
--- NOTE | 2017-03-01 12:08 | Hospitalist Progress Note ---
Assessment and Plan (1) Neuralgia Status: Chronic Assessment and plan: Morphine 2 mg IV every 8 hours as needed for 24 hours. Current Visit: Yes (2) Lupus Status: Chronic Current Visit: No (3) Heme positive stool Status: Acute Current Visit: No (4) Hypertension Status: Chronic Current Visit: No Qualifiers: Hypertension type: essential hypertension Qualified Code(s): I10 - Essential (primary) hypertension (5) Chronic kidney disease, stage 3 Status: Chronic Current Visit: No (6) AVM (arteriovenous malformation) of small bowel, acquired Status: Acute Current Visit: No (7) Anemia Status: Acute Current Visit: Yes Qualifiers: Anemia type: unspecified type Qualified Code(s): D64.9 - Anemia, unspecified (8) Constipation Status: Acute Assessment and plan: Dulcolax 10 mg daily as needed. Colace 100 mg twice daily Current Visit: Yes Hospitalist: Subjective Interval history: Ms. Cardenas is resting comfortably at this time. However she does describe some neuralgia on her head that is recurred from her history of shingles. She is requesting IV pain medicine. She has not noticed any more blood her last hematocrit was noted to be 29. She has complain of constipation would like something to help with that MiraLAX does not seem to be helping with her symptoms. No fevers or chills. Exam - Constitutional Vitals: Period Temp Pulse Resp BP Sys/Landa Pulse Ox Last 24 Hr 97.2 F-99.1 F 69-73 16-22 117-145/55-68 99-100 General appearance: normal weight - Head Head exam: Present: normal inspection - Eye Eye exam: Present: EOMI - Respiratory Respiratory exam: Present: clear to auscultation bilaterally - Cardiovascular Cardiovascular exam: Present: regular rate and rhythm - GI/Abdominal GI/Abdominal exam: Present: normal bowel sounds - Extremities Exam Extremities exam: Present: normal inspection - Neurological Exam Neurological exam: Present: alert, oriented X3 - Psychiatric Psychiatric exam: Present: normal affect, normal mood - Skin Skin exam: Present: normal color, warm Results - Labs CBC & BMP: 03/01/17 Unknown 02/28/17 05:32
[2017-03-01] MEDS: BISACODYL 5 MG TABLET PO SCH (13:00)
--- NOTE | 2017-03-01 14:22 | Gastrointestinal Progress Note ---
Assessment and Plan (1) AVM (arteriovenous malformation) of small bowel, acquired Status: Acute Assessment and plan: This patient is being seen for Dr. Rajan while he is off for the weekend. The patient has multiple AVMs noted and a vascular appearing lesion in the third portion of the duodenum that was not biopsied nor was his cauterized. She also has an incidental esophageal stricture that was not dilated due to lack of symptoms and diffuse stomach AVMs as well. She was not actively bleeding at the time of endoscopy. If she should start to bleed briskly, a tagged red blood cell scan and possible arterial embolization might become necessary versus repeated upper endoscopy with potential clipping versus BiCAP cautery versus argon plasma coagulation. Today's hematocrit is pending. If she is stable she might be able to be discharged by Friday or Friday from our standpoint. 03/01/17--This patient is doing fairly well at this time, no GI complaints aside from her constipation. She has not had any further bowel movements but is eating well. She is getting Dulcolax today for her constipation but does not desire a enema. This can be provided upon request. Current Visit: No (2) Upper GI bleed Status: Acute Assessment and plan: Patient seems stable at this point clinically we are awaiting today's hematocrit. 03/01/17--The patient's hematocrit is stable at 29%. Last 3 hematocrits have been 28.8, then 29.3, and 29.0%. Current Visit: Yes (3) Anemia Status: Acute Assessment and plan: Patient's hematocrit had dropped down to 21.3% at its carlos. We are rechecking status post 2 unit transfusion yesterday his hematocrit was up to 28.8% yesterday. 03/01/17--As noted above. Current Visit: Yes Qualifiers: Anemia type: unspecified type Qualified Code(s): D64.9 - Anemia, unspecified Gastroenterology - PN: Subj Interval history: Still no bowel movements but eating well and no new complaints. She has been written to get some Dulcolax, wants to hold off on an enema for the present. Her hematocrit remained stable at 29%. Exam (Progress Note) - Constitutional Vitals: Period Temp Pulse Resp BP Sys/Landa Pulse Ox Last 24 Hr 97.2 F-99.1 F 69-74 16-22 117-145/55-68 97-100 General appearance: no acute distress - Eye Eye exam: Present: EOMI Pupils: Present: LISA - Respiratory Respiratory exam: Present: clear to auscultation bilaterally. Absent: rhonchi - Cardiovascular Cardiovascular exam: Present: regular rate and rhythm - GI/Abdominal GI/Abdominal exam: Present: normal bowel sounds, soft. Absent: distended, tenderness, rebound - Neurological Exam Neurological exam: Present: alert, oriented X3 - Psychiatric Psychiatric exam: Present: normal affect, normal mood - Skin Skin exam: Present: warm Results - Labs CBC & BMP: 03/01/17 Unknown 02/28/17 05:32
[2017-03-01] MEDS: ROSUVASTATIN 10 MG TABLET PO SCH (20:24)
[2017-03-01] MEDS: DOCUSATE SODIUM 100 MG CAPSULE PO SCH (20:24)
[2017-03-01] MEDS: AMITRIPTYLINE 75 MG TABLET PO SCH (20:25)
[2017-03-01] MEDS: QUEtiapine 100 MG TABLET PO PRN (20:25)
[2017-03-02] MEDS: DEXT 5% NACL 0.45% KCL 20 MEQ 20 MEQ/1,000 ML BAG IV SCH ×3 (06:08→21:09)
[2017-03-02 06:43] LABS: Basophils % 0.5 % (0.0-0.8); Eosinophils # 0.2 10*3/uL (0.0-0.87); Eosinophils % 3.7 % (0.00-10.9); Hematocrit 23.2 VOL% (35.7-47.0); Hemoglobin 7.5 GM/DL (12.0-16.0); Immature Granulocytes % 2.1 %; Immature Granulocytes Absolute 0.13 #; Lymphocytes # 1.3 10*3/uL (1.4-4.0); Lymphocytes % 21.3 % (21.3-54.2); Mean Corpuscular HGB Conc 32.3 GM/DL (32-36); Mean Corpuscular Hemoglobin 27 PG (27-34); Mean Corpuscular Volume 83.8 FL (87-102); Mean Platelet Volume 10.6 FL (9.6-12.0); Monocytes # 0.4 10*3/uL (0.11-0.8); Neutrophils # 4.1 10*3/uL (1.4-7.4); Neutrophils % 65.4 % (38.7-73.9); Platelet Count 153 T/CUMM (130-400); Red Blood Count 2.77 MC/CUMM (3.8-5.5); Red Cell Distribution Width 13.6 % (9.3-17.3); White Blood Count 6.3 T/CUMM (4-12)
[2017-03-02] MEDS: HYDROXYCHLOROQUINE 200 MG TABLET PO SCH (08:34)
[2017-03-02] MEDS: POLYETHYLENE GLYCOL POWDER 17 GM PACK PO SCH ×2 (08:34→21:09)
[2017-03-02] MEDS: BISACODYL 5 MG TABLET PO SCH (08:35)
[2017-03-02] MEDS: DOCUSATE SODIUM 100 MG CAPSULE PO SCH ×2 (08:35→21:06)
[2017-03-02] MEDS: MYCOPHENOLATE MOFETIL 250 MG CAPSULE PO SCH (08:35)
[2017-03-02] MEDS: DULoxetine 30 MG CAPSULE PO SCH (08:35)
[2017-03-02] MEDS: FERROUS GLUCONATE 324 MG TABLET PO SCH ×2 (08:36→21:06)
[2017-03-02] MEDS: PANTOPRAZOLE 40 MG VIAL IV SCH ×2 (08:38→21:07)
[2017-03-02 09:31] LABS: Basophils % 0.3 % (0.0-0.8); Eosinophils # 0.3 10*3/uL (0.0-0.87); Eosinophils % 3.7 % (0.00-10.9); Hematocrit 26.4 VOL% (35.7-47.0); Hemoglobin 8.6 GM/DL (12.0-16.0); Immature Granulocytes % 2.5 %; Immature Granulocytes Absolute 0.17 #; Lymphocytes # 1.1 10*3/uL (1.4-4.0); Lymphocytes % 16.3 % (21.3-54.2); Mean Corpuscular HGB Conc 32.6 GM/DL (32-36); Mean Corpuscular Hemoglobin 27 PG (27-34); Mean Corpuscular Volume 83.8 FL (87-102); Mean Platelet Volume 10.4 FL (9.6-12.0); Monocytes # 0.4 10*3/uL (0.11-0.8); Monocytes % 5.8 % (1.7-12.7); Neutrophils # 4.8 10*3/uL (1.4-7.4); Neutrophils % 71.4 % (38.7-73.9); Platelet Count 172 T/CUMM (130-400); Red Blood Count 3.15 MC/CUMM (3.8-5.5); Red Cell Distribution Width 13.8 % (9.3-17.3); White Blood Count 6.7 T/CUMM (4-12)
--- NOTE | 2017-03-02 11:25 | Hospitalist Progress Note ---
Assessment and Plan (1) Neuralgia Status: Chronic Assessment and plan: Morphine 2 mg IV every 8 hours as needed for 24 hours. Current Visit: Yes (2) Lupus Status: Chronic Current Visit: No (3) Heme positive stool Status: Acute Current Visit: No (4) Hypertension Status: Chronic Current Visit: No Qualifiers: Hypertension type: essential hypertension Qualified Code(s): I10 - Essential (primary) hypertension (5) Chronic kidney disease, stage 3 Status: Chronic Current Visit: No (6) AVM (arteriovenous malformation) of small bowel, acquired Status: Acute Current Visit: No (7) Anemia Status: Acute Current Visit: Yes Qualifiers: Anemia type: unspecified type Qualified Code(s): D64.9 - Anemia, unspecified (8) Constipation Status: Acute Assessment and plan: Dulcolax 10 mg daily as needed. Colace 100 mg twice daily Current Visit: Yes Hospitalist: Subjective Interval history: Patient is resting comfortably. Still has not had a bowel movement yet. Her hematocrit has been stable at 26.4. Hemodynamics have been stable. Headache pain appears to improve. Will repeat CBC in a.m. Exam - Constitutional Vitals: Period Temp Pulse Resp BP Sys/Landa Pulse Ox Last 24 Hr 96.1 F-98.2 F 63-76 16-18 97-149/45-83 97-100 General appearance: normal weight - Head Head exam: Present: normal inspection - Neck Neck exam: Present: normal inspection - Respiratory Respiratory exam: Present: clear to auscultation bilaterally - GI/Abdominal GI/Abdominal exam: Present: normal bowel sounds - Extremities Exam Extremities exam: Present: normal inspection - Back Exam Back exam: Present: normal inspection - Psychiatric Psychiatric exam: Present: normal affect, normal mood Results - Labs CBC & BMP: 03/02/17 08:55 02/28/17 05:32
[2017-03-02] MEDS ORDERED: SODIUM PHOSPHATE ENEMA 133 ML BOTTLE RECTAL ONE (14:11)
--- NOTE | 2017-03-02 14:15 | Gastrointestinal Progress Note ---
Assessment and Plan (1) AVM (arteriovenous malformation) of small bowel, acquired Status: Acute Assessment and plan: This patient is being seen for Dr. Rajan while he is off for the weekend. The patient has multiple AVMs noted and a vascular appearing lesion in the third portion of the duodenum that was not biopsied nor was his cauterized. She also has an incidental esophageal stricture that was not dilated due to lack of symptoms and diffuse stomach AVMs as well. She was not actively bleeding at the time of endoscopy. If she should start to bleed briskly, a tagged red blood cell scan and possible arterial embolization might become necessary versus repeated upper endoscopy with potential clipping versus BiCAP cautery versus argon plasma coagulation. Today's hematocrit is pending. If she is stable she might be able to be discharged by Friday or Friday from our standpoint. 03/01/17--This patient is doing fairly well at this time, no GI complaints aside from her constipation. She has not had any further bowel movements but is eating well. She is getting Dulcolax today for her constipation but does not desire a enema. This can be provided upon request. 03/02/17--Still having her constipation, she would like to have an enema at this point but would like to insert this herself. Current Visit: No (2) Upper GI bleed Status: Acute Assessment and plan: Patient seems stable at this point clinically we are awaiting today's hematocrit. 03/01/17--The patient's hematocrit is stable at 29%. Last 3 hematocrits have been 28.8, then 29.3, and 29.0%. 03/02/17--Aberrant lab work came back looking like 23% hematocrit this morning on recheck this was actually 26 which is essentially unchanged from yesterday. Current Visit: Yes (3) Anemia Status: Acute Assessment and plan: Patient's hematocrit had dropped down to 21.3% at its carlos. We are rechecking status post 2 unit transfusion yesterday his hematocrit was up to 28.8% yesterday. 03/01/17--As noted above. 03/02/17--Hematocrit down to 26% but appears stable from yesterday. Current Visit: Yes Qualifiers: Anemia type: unspecified type Qualified Code(s): D64.9 - Anemia, unspecified Gastroenterology - PN: Subj Interval history: No further blood per rectum, the patient still has not had a bowel movement and would like to have a fleets enema that she can give herself. Food seems to be going down adequately. Exam (Progress Note) - Constitutional Vitals: Period Temp Pulse Resp BP Sys/Landa Pulse Ox Last 24 Hr 96.1 F-98.2 F 63-76 16-18 97-149/45-83 97-100 General appearance: no acute distress - Head Head exam: Present: normocephalic, atraumatic - Eye Eye exam: Present: EOMI - Respiratory Respiratory exam: Present: clear to auscultation bilaterally - Cardiovascular Cardiovascular exam: Present: regular rate and rhythm - GI/Abdominal GI/Abdominal exam: Present: normal bowel sounds, soft. Absent: distended, guarding, tenderness, rebound - Extremities Exam Extremities exam: Present: normal inspection - Neurological Exam Neurological exam: Present: alert, oriented X3 - Psychiatric Psychiatric exam: Present: normal affect, normal mood - Skin Skin exam: Present: warm Results - Labs CBC & BMP: 03/02/17 08:55 02/28/17 05:32
[2017-03-02] MEDS: ROSUVASTATIN 10 MG TABLET PO SCH (21:06)
[2017-03-02] MEDS: ZALEPLON 5 MG CAPSULE PO PRN (21:06)
[2017-03-02] MEDS: QUEtiapine 100 MG TABLET PO PRN (21:06)
[2017-03-02] MEDS: AMITRIPTYLINE 75 MG TABLET PO SCH (21:06)
[2017-03-03] MEDS: DEXT 5% NACL 0.45% KCL 20 MEQ 20 MEQ/1,000 ML BAG IV SCH ×2 (05:08→23:01)
[2017-03-03 06:56] LABS: Basophils % 0.4 % (0.0-0.8); Eosinophils # 0.3 10*3/uL (0.0-0.87); Eosinophils % 4.3 % (0.00-10.9); Hematocrit 24.3 VOL% (35.7-47.0); Hemoglobin 7.8 GM/DL (12.0-16.0); Immature Granulocytes % 2.6 %; Immature Granulocytes Absolute 0.18 #; Lymphocytes # 1.2 10*3/uL (1.4-4.0); Lymphocytes % 16.7 % (21.3-54.2); Mean Corpuscular HGB Conc 32.1 GM/DL (32-36); Mean Corpuscular Hemoglobin 26 PG (27-34); Mean Corpuscular Volume 82.4 FL (87-102); Mean Platelet Volume 10.2 FL (9.6-12.0); Monocytes # 0.4 10*3/uL (0.11-0.8); Monocytes % 6.2 % (1.7-12.7); Neutrophils # 4.9 10*3/uL (1.4-7.4); Neutrophils % 69.8 % (38.7-73.9); Platelet Count 178 T/CUMM (130-400); Red Blood Count 2.95 MC/CUMM (3.8-5.5); Red Cell Distribution Width 14.3 % (9.3-17.3)
--- NOTE | 2017-03-03 07:32 | Oncology Progress Note ---
Oncology Subjective PN Interval history: Patient with persistent anemia and a history of AV malformations. Admitted recently with melena. Her hemoglobin today is 7.8. I am ordering additional blood transfusion. She apparently is continuing to lose blood. This is a frustrating situation. She is oriented and alert and in no acute distress. She has a history of ITP and autoimmune hemolytic anemia but neither 1 of these appears to be active presently. Exam - Constitutional Vitals: Period Temp Pulse Resp BP Sys/Landa Pulse Ox Last 24 Hr 96.1 F-98.2 F 62-74 16-18 102-137/51-71 97-100 Results - Labs CBC & BMP: 03/03/17 06:20 02/28/17 05:32
[2017-03-03] MEDS ORDERED: SODIUM CHLORIDE 0.9% 250 ML IV PRN (07:41)
--- NOTE | 2017-03-03 09:07 | Gastrointestinal Progress Note ---
<MallysusanBridget Aneta - Last Filed: 03/03/17 09:04> Assessment and Plan (1) Melena Status: Acute Assessment and plan: 03/03-Small amount melena, hgb at 7.8, to have 2 units of PRBC today. Plan and addendum to follow by Dr Rajan. 02/26-onset of dark tarry stools on yesterday with lower abdominal pain and cramping. 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 Last endoscopy September 2016 with treatment of AVMs. Hemoglobin 8.6. Continue to monitor serial hemoglobin and transfuse as needed. Plan for EGD tomorrow morning to further evaluate. If active bleeding began's, obtain stat CT bleeding scan. Plan an addendum to follow by Dr. Rajan per Current Visit: Yes (2) Symptomatic anemia Status: Resolved Current Visit: No Gastroenterology - PN: Subj Interval history: CC: Anemia Pt is seen awake and alert sitting up in bed. States she is feeling the same today. Denies any abdominal pain, nausea or vomiting. She denies any overt bleeding however states her bowels did move over the weekend and had some dark stool noted with this. She has a good appetite and tolerating diet well. Abdomen is soft, nontender. Hgb is noted at 7.8. She has received a little under 3 units of blood since admission. She is to receive two more this morning. ROS: Denies SOB or chest pain Exam (Progress Note) - Constitutional Vitals: Period Temp Pulse Resp BP Sys/Landa Pulse Ox Last 24 Hr 97.2 F-98.2 F 62-74 16-18 112-137/56-71 97-100 General appearance: normal weight, no acute distress - Head Head exam: Present: normal inspection, normocephalic - Eye Eye exam: Present: other (lids and conjunctiva unremarkable). Absent: scleral icterus - ENT ENT exam: Present: normal exam, normal oropharynx - Neck Neck exam: Present: normal inspection - Respiratory Respiratory exam: Present: clear to auscultation bilaterally. Absent: rales, rhonchi, wheezes - Cardiovascular Cardiovascular exam: Present: regular rate and rhythm. Absent: diastolic murmur , JVD, systolic murmur - GI/Abdominal GI/Abdominal exam: Present: normal bowel sounds, soft. Absent: ascites, distended, mass, organomegaly, tenderness - Extremities Exam Extremities exam: Present: normal inspection, full ROM - Back Exam Back exam: Present: normal inspection - Neurological Exam Neurological exam: Present: alert, oriented X3 - Psychiatric Psychiatric exam: Present: normal affect, normal mood - Skin Skin exam: Present: normal color, warm, dry Results - Labs CBC & BMP: 03/03/17 06:20 02/28/17 05:32 Lab Results: I have reviewed the past 24 hour labs <Santiago Rajan - Last Filed: 03/03/17 13:14> Exam (Progress Note) - Constitutional Vitals: Period Temp Pulse Resp BP Sys/Landa Pulse Ox Last 24 Hr 97.2 F-98.4 F 62-72 16-18 109-181/56-84 97-100 Results - Labs CBC & BMP: 03/03/17 06:20 02/28/17 05:32
[2017-03-03] MEDS: PREGABALIN 75 MG CAPSULE PO SCH (09:12)
[2017-03-03] MEDS: DOCUSATE SODIUM 100 MG CAPSULE PO SCH ×2 (09:12→20:41)
[2017-03-03] MEDS: FERROUS GLUCONATE 324 MG TABLET PO SCH ×2 (09:12→20:41)
[2017-03-03] MEDS: HYDROXYCHLOROQUINE 200 MG TABLET PO SCH (09:12)
[2017-03-03] MEDS: BISACODYL 5 MG TABLET PO SCH (09:12)
[2017-03-03] MEDS: PANTOPRAZOLE 40 MG VIAL IV SCH ×2 (09:12→20:41)
[2017-03-03] MEDS: POLYETHYLENE GLYCOL POWDER 17 GM PACK PO SCH ×2 (09:22→20:49)
--- NOTE | 2017-03-03 16:26 | Hospitalist Progress Note ---
Assessment and Plan (1) Lupus Status: Chronic Current Visit: No (2) Upper GI bleed Status: Acute Assessment and plan: Patient has history of multiple AVMs. EGD tomorrow, bleeding scan today Current Visit: Yes (3) Small bowel arteriovenous malformation Status: Acute Current Visit: Yes Hospitalist: Subjective Interval history: No complaints this am. Still with slow decline in H/H. Transfusing today. Bleeding scan today and EGD tomorrow. Exam - Constitutional Vitals: Period Temp Pulse Resp BP Sys/Landa Pulse Ox Last 24 Hr 97.6 F-98.6 F 62-75 16-18 109-181/56-84 97-100 General appearance: normal weight - Head Head exam: Present: normocephalic, atraumatic - Eye Eye exam: Present: EOMI Pupils: Present: LISA - ENT ENT exam: Present: normal exam - Neck Neck exam: Present: normal inspection - Respiratory Respiratory exam: Present: clear to auscultation bilaterally. Absent: rhonchi, wheezes - Cardiovascular Cardiovascular exam: Present: regular rate and rhythm - GI/Abdominal GI/Abdominal exam: Present: normal bowel sounds, soft. Absent: tenderness, rebound - Extremities Exam Extremities exam: Present: normal inspection - Back Exam Back exam: Present: normal inspection - Neurological Exam Neurological exam: Present: alert, oriented X3 - Psychiatric Psychiatric exam: Present: normal affect, normal mood - Skin Skin exam: Present: warm, intact Results - Labs CBC & BMP: 03/03/17 06:20 02/28/17 05:32
[2017-03-03] MEDS: AMITRIPTYLINE 75 MG TABLET PO SCH (20:41)
[2017-03-03] MEDS: ROSUVASTATIN 10 MG TABLET PO SCH (20:41)
[2017-03-03] MEDS: QUEtiapine 100 MG TABLET PO PRN (20:41)
[2017-03-03] MEDS: ZALEPLON 5 MG CAPSULE PO PRN (20:41)
[2017-03-04 05:51] LABS: Basophils % 0.5 % (0.0-0.8); Eosinophils # 0.4 10*3/uL (0.0-0.87); Eosinophils % 4.5 % (0.00-10.9); Hematocrit 34.1 VOL% (35.7-47.0); Immature Granulocytes % 1.9 %; Immature Granulocytes Absolute 0.15 #; Lymphocytes # 1.5 10*3/uL (1.4-4.0); Lymphocytes % 18.6 % (21.3-54.2); Mean Corpuscular HGB Conc 32.3 GM/DL (32-36); Mean Corpuscular Hemoglobin 27 PG (27-34); Mean Corpuscular Volume 84.8 FL (87-102); Mean Platelet Volume 10.1 FL (9.6-12.0); Monocytes # 0.5 10*3/uL (0.11-0.8); Monocytes % 6.2 % (1.7-12.7); Neutrophils # 5.3 10*3/uL (1.4-7.4); Neutrophils % 68.3 % (38.7-73.9); Platelet Count 170 T/CUMM (130-400); Red Cell Distribution Width 13.9 % (9.3-17.3); White Blood Count 7.8 T/CUMM (4-12)
[2017-03-04 06:16] LABS: Calcium 7.8 MG/DL (8.5-10.1); Magnesium 2.2 MG/DL (1.8-2.4); Osmolality,Calculated 289.6 MOS/KG (273-304); Potassium 4.2 MMOL/L (3.5-5.1)
[2017-03-04 06:47] LABS: Red Blood Count 4.02 MC/CUMM (3.8-5.5)
--- NOTE | 2017-03-04 09:12 | Oncology Progress Note ---
Oncology Subjective PN Interval history: Lab work today includes a hemoglobin of 11.0 with a hematocrit of 34.1. The white cell count remains normal at 7800 and the platelet count is 170,000. EGD is being repeated today. Exam - Constitutional Vitals: Period Temp Pulse Resp BP Sys/Landa Pulse Ox Last 24 Hr 97.5 F-98.6 F 59-75 16-20 138-181/69-84 97-99 Results - Labs CBC & BMP: 03/04/17 04:22 03/04/17 04:22
--- NOTE | 2017-03-04 11:55 | Operative Note ---
Date of procedure: 03/04/17 Pre-op diagnosis: Melena with history of angiodysplasia Procedure: EGD with small bowel endoscopy 61-year-old female with recurrent GI blood loss secondary to AVMs now for upper endoscopy for ongoing melena. Informed symptoms obtained patient. She was sedated with MAC anesthesia per anesthesia protocol. Patient placed in left lateral decubitus position the Olympus video pediatric colonoscope was utilized to permit small bowel endoscopy. The scope was advanced under direct vision in the oral cavity. Findings: Esophagus-normal esophageal mucosa distal esophagus small hiatal hernia no significant esophagitis is seen. Stomach-normal insufflation normal mucosa to direct retroflexed views of the body, fundus, cardia and antrum the stomach. Pylorus-normal Duodenum-normal for the bulb and duodenum to proximally the distal jejunum. The aforementioned submucosal lesion in the third portion duodenum was again seen with no visible bleeding. Few scattered AVMs are seen with no active bleeding. No bloodstained mucosa or blood was present throughout the upper tract could be visualized. The procedure terminated placed our procedure well she is discharged recovery in good condition Postop diagnosis 1. Suspect angiodysplasia bleeding check bleeding scan and attempt to localize. Continue to monitor H&H. Anesthesia: MAC Surgeon / Physician: Santiago Rajan Estimated blood loss: none Specimens: none sent Condition: stable Disposition: post procedure unit Results - Labs CBC & BMP: 03/04/17 04:22 03/04/17 04:22 Discharge Plan - Discharge Medications No Action Omeprazole [Prilosec] 20 mg PO BID Hydroxychloroquine [Plaquenil] 200 mg PO DAILY HYDROcodone/ACETAMIN 10-325 [Ramona 10-325] 1 tablet PO Q6H PRN PRN Reason: Pain Ferrous Gluconate 324 mg PO BID Valsartan [Diovan] 160 mg PO QAM LORazepam TAB [Ativan Tab] 1 mg PO ONCE PRN PRN Reason: Anxiety Zolpidem Tartrate 10 mg PO BEDTIME PRN PRN Reason: Sleep Duloxetine HCl [Cymbalta] 60 mg PO QOTHER DAY Rosuvastatin [Crestor] 10 mg PO BEDTIME Mycophenolate Mofetil [Cellcept] 500 mg PO QOTHER DAY Aspirin [Ecotrin] 81 mg PO QAM Pregabalin [Lyrica] 75 mg PO QOTHER DAY Amitriptyline [Elavil] 75 mg PO BEDTIME Naltrexone HCl [Revia] 50 mg PO DAILY Levothyroxine Tab [Synthroid Tab] 75 mcg PO DAILY@0700 Quetiapine Fumarate [Quetiapine Fumarate] 100 mg PO BEDTIME PRN PRN Reason: Sleep - Follow Up or Referral - Forms/Instructions
--- NOTE | 2017-03-04 12:01 | Anesthesia ---
Anesthesia Post OP - Post Ansesthetic Evaluation Patient seen in post op: Yes Resp: within normal limits CV: within normal limits Mental: within normal limits Temp: within normal limits [id number]: within normal limits Nausea and Vomiting: within normal limits Pain: within normal limits
--- NOTE | 2017-03-04 14:29 | Nuclear Medicine Report ---
NM GI bleeding Indication: Recurrent GI bleed. History of angiodysplasia. TAGGED RED CELL BLEEDING SCAN Technique: 25 mCi technetium 99 labeled PYP was injected for in vivo tagging of RBCs. Planar images of the abdomen and pelvis were then obtained. Comparison: None. Findings: No accumulated activity is identified in the GI tract to suggest active GI bleed. Free pertechnetate collecting the bladder. Impression: No evidence of GI bleed. PROCEDURE INTERPRETED AT [facility] [place] DEPARTMENT OF RADIOLOGY Final Report Signed by: Delfino Beaver M.D.
[2017-03-04] MEDS: DEXT 5% NACL 0.45% KCL 20 MEQ 20 MEQ/1,000 ML BAG IV SCH (15:19)
[2017-03-04] MEDS: PANTOPRAZOLE 40 MG VIAL IV SCH ×2 (15:27→20:26)
[2017-03-04] MEDS: DOCUSATE SODIUM 100 MG CAPSULE PO SCH ×2 (15:28→20:26)
[2017-03-04] MEDS: HYDROXYCHLOROQUINE 200 MG TABLET PO SCH (15:28)
[2017-03-04] MEDS: MYCOPHENOLATE MOFETIL 250 MG CAPSULE PO SCH (15:28)
[2017-03-04] MEDS: BISACODYL 5 MG TABLET PO SCH (15:28)
[2017-03-04] MEDS: DULoxetine 30 MG CAPSULE PO SCH (15:28)
[2017-03-04] MEDS: FERROUS GLUCONATE 324 MG TABLET PO SCH ×2 (15:28→20:26)
[2017-03-04] MEDS: POLYETHYLENE GLYCOL POWDER 17 GM PACK PO SCH ×2 (16:21→20:35)
--- NOTE | 2017-03-04 16:42 | Hospitalist Progress Note ---
Assessment and Plan (1) Lupus Status: Chronic Current Visit: No (2) Upper GI bleed Status: Acute Assessment and plan: Patient has history of multiple AVMs. Current Visit: Yes (3) Small bowel arteriovenous malformation Status: Acute Current Visit: Yes Hospitalist: Subjective Interval history: Patient tearful and frustrated about egd and bleeding scan being negative today. H/H with rise more than expected after blood transfusion. Continue to monitor H/H. Exam - Constitutional Vitals: Period Temp Pulse Resp BP Sys/Landa Pulse Ox Last 24 Hr 97.4 F-98 F 59-72 14-20 137-170/72-82 97-100 General appearance: over weight - Head Head exam: Present: normocephalic, atraumatic - Eye Eye exam: Present: EOMI Pupils: Present: LISA - ENT ENT exam: Present: normal exam - Neck Neck exam: Present: normal inspection - Respiratory Respiratory exam: Present: clear to auscultation bilaterally. Absent: rhonchi, wheezes - Cardiovascular Cardiovascular exam: Present: regular rate and rhythm - GI/Abdominal GI/Abdominal exam: Present: normal bowel sounds, soft. Absent: tenderness, rebound - Extremities Exam Extremities exam: Present: normal inspection - Back Exam Back exam: Present: normal inspection - Neurological Exam Neurological exam: Present: alert, oriented X3 - Psychiatric Psychiatric exam: Present: normal affect, normal mood - Skin Skin exam: Present: warm, intact Results - Labs CBC & BMP: 03/04/17 04:22 03/04/17 04:22
[2017-03-04] MEDS: QUEtiapine 100 MG TABLET PO PRN (20:26)
[2017-03-04] MEDS: ZALEPLON 5 MG CAPSULE PO PRN (20:26)
[2017-03-04] MEDS: ROSUVASTATIN 10 MG TABLET PO SCH (20:26)
[2017-03-04] MEDS: AMITRIPTYLINE 75 MG TABLET PO SCH (20:26)
[2017-03-05 05:51] LABS: Basophils % 0.4 % (0.0-0.8); Eosinophils # 0.3 10*3/uL (0.0-0.87); Eosinophils % 3.7 % (0.00-10.9); Hematocrit 34.6 VOL% (35.7-47.0); Hemoglobin 11.5 GM/DL (12.0-16.0); Immature Granulocytes % 1.3 %; Lymphocytes # 1.2 10*3/uL (1.4-4.0); Lymphocytes % 15.7 % (21.3-54.2); Mean Corpuscular HGB Conc 33.2 GM/DL (32-36); Mean Corpuscular Hemoglobin 28 PG (27-34); Mean Corpuscular Volume 83.2 FL (87-102); Mean Platelet Volume 10.1 FL (9.6-12.0); Monocytes # 0.5 10*3/uL (0.11-0.8); Monocytes % 6.8 % (1.7-12.7); Neutrophils # 5.4 10*3/uL (1.4-7.4); Neutrophils % 72.1 % (38.7-73.9); Platelet Count 193 T/CUMM (130-400); Red Blood Count 4.16 MC/CUMM (3.8-5.5); Red Cell Distribution Width 14.3 % (9.3-17.3); White Blood Count 7.5 T/CUMM (4-12)
[2017-03-05] MEDS: PANTOPRAZOLE 40 MG VIAL IV SCH (08:25)
[2017-03-05] MEDS: HYDROXYCHLOROQUINE 200 MG TABLET PO SCH (08:25)
[2017-03-05] MEDS: PREGABALIN 75 MG CAPSULE PO SCH (08:25)
[2017-03-05] MEDS: POLYETHYLENE GLYCOL POWDER 17 GM PACK PO SCH (08:25)
[2017-03-05] MEDS: BISACODYL 5 MG TABLET PO SCH (08:25)
[2017-03-05] MEDS: DOCUSATE SODIUM 100 MG CAPSULE PO SCH (08:25)
[2017-03-05] MEDS: FERROUS GLUCONATE 324 MG TABLET PO SCH (08:25)
--- NOTE | 2017-03-05 08:30 | Oncology Progress Note ---
Oncology Subjective PN Interval history: Patient that I follow for autoimmune hemolytic anemia and immune thrombocytopenia, neither of which are problems presently. She is being worked up for GI blood loss.She underwent bleeding scan on March 04, 2017 and there was no evidence of GI bleeding on the scan. Her hemoglobin is 11.5 today Her platelet count is 193,000 and her white cell count is 7500. Her serum creatinine is 1.3. She had mild chronic renal failure. Exam - Constitutional Vitals: Period Temp Pulse Resp BP Sys/Landa Pulse Ox Last 24 Hr 97.2 F-99.1 F 59-68 14-20 148-170/70-87 96-100 Results - Labs CBC & BMP: 03/05/17 05:14 03/04/17 04:22
--- NOTE | 2017-03-05 09:08 | Gastrointestinal Progress Note ---
<Bridget Kelly - Last Filed: 03/05/17 09:06> Assessment and Plan (1) Melena Status: Acute Assessment and plan: 03/05-No reports of melena this morning. Hgb stable at 11.5. Tolerating diet. Plan and addendum to follow by Dr Rajan. 03/03-Small amount melena, hgb at 7.8, to have 2 units of PRBC today. Plan and addendum to follow by Dr Rajan. 02/26-onset of dark tarry stools on yesterday with lower abdominal pain and cramping. 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 Last endoscopy September 2016 with treatment of AVMs. Hemoglobin 8.6. Continue to monitor serial hemoglobin and transfuse as needed. Plan for EGD tomorrow morning to further evaluate. If active bleeding began's, obtain stat CT bleeding scan. Plan an addendum to follow by Dr. Rajan per (2) Symptomatic anemia Status: Resolved Gastroenterology - PN: Subj Interval history: CC: Anemia Pt is seen sitting up in chair awake and alert. States she is feeling some better today. She is having no overt bleeding. She denies any abdominal pain. Tolearating her diet well. Hemoglobin is stable at 11.5 today and has since her last transfusion on 03/03. Abdomen is soft, nontender. ROS: Denies SOB or chest pain Exam (Progress Note) - Constitutional Vitals: Period Temp Pulse Resp BP Sys/Landa Pulse Ox Last 24 Hr 97.2 F-99.1 F 59-68 14-20 148-170/70-87 96-100 General appearance: normal weight, no acute distress - Head Head exam: Present: normal inspection, normocephalic - Eye Eye exam: Present: other (lids and conjunctiva unremarkable). Absent: scleral icterus - ENT ENT exam: Present: normal exam, normal oropharynx - Neck Neck exam: Present: normal inspection - Respiratory Respiratory exam: Present: clear to auscultation bilaterally. Absent: rales, rhonchi, wheezes - Cardiovascular Cardiovascular exam: Present: regular rate and rhythm. Absent: diastolic murmur , JVD, systolic murmur - GI/Abdominal GI/Abdominal exam: Present: normal bowel sounds, soft. Absent: ascites, distended, mass, organomegaly, tenderness - Extremities Exam Extremities exam: Present: normal inspection, full ROM - Back Exam Back exam: Present: normal inspection - Neurological Exam Neurological exam: Present: alert, oriented X3 - Psychiatric Psychiatric exam: Present: normal affect, normal mood - Skin Skin exam: Present: normal color, warm, dry Results - Labs CBC & BMP: 03/05/17 05:14 03/04/17 04:22 Lab Results: I have reviewed the past 24 hour labs Specialty Discharge - Follow Up or Referrals Follow up with: Elaine Oconnor NP [Primary Care Provider] - 1 Week (Hospital f/u for gi bleed, H/H check Call and make your appointment.) <Santiago Rajan - Last Filed: 05/19/17 11:23> Results - Labs CBC & BMP: 03/05/17 05:14 03/04/17 04:22
--- NOTE | 2017-03-05 14:30 | Discharge Summary ---
Hospital Course - Hospital Course Hospital Course: This is a 61 year old female that presented to the ED with a chief compliant of bloody stools. She had a rather impressive medical history of small bowel AVM, systemic lupus erythematosus, rheumatoid arthritis, heart failure, and Stage II kidney disease. She reported an onset of bloody stools on Friday. She reports the stools started sporadically; then gradually increased. She reported at least 3 stools on morning of admission which caused her to become weak. She had to be assisted by her to the toilet and then became so weak that she was unable to get up. Her called for emergency assistance and she was transported to [facility] for further evaluation. Upon arrival, she was found to be mildly hypotensive with SBP in the 90's. Her volume was replaced and her blood pressures improved. Her H/H was 8.5/26.5 at the time of arrival. Patient has a history of multiple AVMs. She was admitted to the hospitalist service for GI bleed presenting as melena. She required two units of PRBCs the following morning. An EGD was performed, which demonstrated multiple AVMs with no active bleed. Patient had another drop in her hemoglobin, requiring 2 units PRBCs. Repeat EGD still with no active bleed. A GI bleed scan did not show any active bleeding. Her blood counts have remained stable for over 24 hours. She has now reached maximum benefit of inpatient stay and will be discharged home. She will follow up with her PCP in 1 week to have her counts checked. - Time spent with patient Time with patient DS: Less than 30 minutes Diagnosis - Discharge Diagnosis (1) Lupus Status: Chronic (2) Upper GI bleed Status: Resolved (3) Small bowel arteriovenous malformation Status: Chronic Specialty Discharge - Follow Up or Referrals Follow up with: Elaine Oconnor NP [Primary Care Provider] - 1 Week (Hospital f/u for gi bleed, H /H check) Discharge Plan - Discharge Data Condition at Discharge: Stable Discharge Diet: advance to your usual diet Activity: increase activity as tolerated Hygiene: no restrictions Weight Bearing at Discharge: weight bear as tolerated Driving: no restrictions Contact your physician if you experience:: fever over 101, Shortness of breath, Bleeding - Discharge Medications Continue Omeprazole [Prilosec] 20 mg PO BID Hydroxychloroquine [Plaquenil] 200 mg PO DAILY HYDROcodone/ACETAMIN 10-325 [[place] 10-325] 1 tablet PO Q6H PRN PRN Reason: Pain Ferrous Gluconate 324 mg PO BID Valsartan [Diovan] 160 mg PO QAM LORazepam TAB [Ativan Tab] 1 mg PO ONCE PRN PRN Reason: Anxiety Duloxetine HCl [Cymbalta] 60 mg PO QOTHER DAY Rosuvastatin [Crestor] 10 mg PO BEDTIME Mycophenolate Mofetil [Cellcept] 500 mg PO QOTHER DAY Pregabalin [Lyrica] 75 mg PO QOTHER DAY Amitriptyline [Elavil] 75 mg PO BEDTIME Naltrexone HCl [Revia] 50 mg PO DAILY Levothyroxine Tab [Synthroid Tab] 75 mcg PO DAILY@0700 Quetiapine Fumarate 100 mg PO BEDTIME PRN #30 tablet PRN Reason: Sleep Zolpidem Tartrate 10 mg PO BEDTIME PRN #30 tablet PRN Reason: Sleep Discontinued Aspirin [Ecotrin] 81 mg PO QAM - Follow Up or Referral - Forms/Instructions Exam - Constitutional Vitals: Period Temp Pulse Resp BP Sys/Landa Pulse Ox Last 24 Hr 97.2 F-99.1 F 59-68 16-20 134-161/69-87 96-99 General appearance: over weight - Head Head exam: Present: normocephalic, atraumatic - Eye Eye exam: Present: EOMI Pupils: Present: LISA - ENT ENT exam: Present: normal exam - Neck Neck exam: Present: normal inspection - Respiratory Respiratory exam: Present: clear to auscultation bilaterally. Absent: rhonchi, wheezes - Cardiovascular Cardiovascular exam: Present: regular rate and rhythm - GI/Abdominal GI/Abdominal exam: Present: normal bowel sounds, soft. Absent: tenderness, rebound - Extremities Exam Extremities exam: Present: normal inspection - Back Exam Back exam: Present: normal inspection - Neurological Exam Neurological exam: Present: alert, oriented X3 - Psychiatric Psychiatric exam: Present: normal affect, normal mood - Skin Skin exam: Present: warm, intact Discharge Results Procedures and tests throughout hospitalization: Pending Orders 03/04/17 08:43 Occult Blood, Stool Routine Labs on day of discharge: Labs from last 24 hours 03/05/17 05:14 WBC 7.5 RBC 4.16 Hgb 11.5 L Hct 34.6 L MCV 83.2 L MCH 28 MCHC 33.2 RDW 14.3 Plt Count 193 MPV 10.1 Neut % (Auto) 72.1 Lymph % (Auto) 15.7 L [place] % (Auto) 6.8 Eos % (Auto) 3.7 Baso % (Auto) 0.4 Neut # (Auto) 5.4 Lymph # (Auto) 1.2 L [place] # (Auto) 0.5 Eos # (Auto) 0.3 Baso # (Auto) 0.0 Immature Gran % 1.3 Nucleated RBC % 0.0 Immature Gran # 0.10 Nucleated RBCs # 0.00 DS: Provider Date of admission: 02/26/17 11:32 Primary care physician: Elaine Oconnor NP Attending physician on admission: Lorraine Dupree MD Consults: 02/26/17 12:26 Consult to Physician [CONS] Routine Comment: Consulting Provider: Santiago Rajan When should Consulting Provider be notified: Now Person Notified: Bridget Date Notified: 02/26/17 Time Notified: 13:07 02/26/17 12:27 Consult to Physician [CONS] Routine Comment: Consulting Provider: Delfino Payan When should Consulting Provider be notified: Now Person Notified: Nicole Date Notified: 02/26/17 Time Notified: 14:31 Discharging clinician: Lorraine Dupree MD
[2017-03-05 15:54] VITALS: BP 156/76
--- NOTE | 2017-03-14 13:49 | Physician Query Form ---
CLICK EDIT DOCUMENT TO SELECT QUERY ANSWER --> OK --> SIGN Jory Campbell RN, CCDS Certified Clinical Pneumatic Riveter W) [phone] (f) [phone] [email or web address]: Make your selection(s) from the choices in EACH section by typing an "x" and enter comments in the comment section. Please use your independent medical judgment in providing your response. This request does not imply that any particular answer is desired or expected. CLINICAL INDICATORS: (Providers should not edit this section) The medical record indicates that the patient was admitted with GI bleed, "Suspect angiodysplasia bleeding", HH dropped to 6.8/21.3 and the patient was given blood. Based on the above, could you clarify which of the following conditions you are evaluating, treating, and/or monitoring? (x ) Blood loss anemia (x ) acute ( ) chronic ( ) acute on chronic ( ) Acute blood loss anemia on baseline chronic anemia ( ) Acute blood loss anemia as a complication of a procedure ( ) Iron deficiency anemia not associated with blood loss ( ) Dilutional anemia due to IV fluids ( ) Anemia due to chemotherapy ( ) Anemia due to neoplastic disease ( ) Anemia due to chronic kidney disease ( ) Pernicious anemia ( ) Aplastic anemia ( ) Hemolytic anemia ( ) immune ( ) non-immune - please specify cause: ( ) Anemia due to other condition, please specify: ( ) Clinically unable to determine COMMENTS: Use of terms such as suspected, likely, or probable (associated with a specific diagnosis that is being evaluated, monitored, or treated as if it exists) are acceptable and can be restated in the discharge summary if not ruled out. MTDD
== END 2017-03-05 17:45 | disposition home or self-care (01) | DRG 378 ==
LOC: EDUNIT# → N.ED 08:22 → N.EDINP 11:32 → N.5E 13:05
PROVIDERS: ADMIT Internal Medicine; ATTEND Internal Medicine

== ENCOUNTER 2019-02-24 11:43 | Inpatient (IN) ==
[2019-02-24 13:46] LABS: Basophils % 0.1 % (0.0-0.8); Eosinophils # 0.1 10*3/uL (0.0-0.87); Eosinophils % 0.9 % (0.00-10.9); Hematocrit 22.5 VOL% (35.7-47.0); Hemoglobin 6.8 GM/DL (12.0-16.0); Immature Granulocytes % 0.6 %; Immature Granulocytes Absolute 0.04 #; Lymphocytes # 1.3 10*3/uL (1.4-4.0); Lymphocytes % 18.6 % (21.3-54.2); Mean Corpuscular HGB Conc 30.2 GM/DL (32-36); Mean Corpuscular Hemoglobin 25 PG (27-34); Mean Platelet Volume 10.2 FL (9.6-12.0); Monocytes # 0.4 10*3/uL (0.11-0.8); Monocytes % 6.3 % (1.7-12.7); Neutrophils % 73.5 % (38.7-73.9); Platelet Count 265 T/CUMM (130-400); Red Blood Count 2.71 MC/CUMM (3.8-5.5); Red Cell Distribution Width 13.2 % (9.3-17.3); White Blood Count 6.8 T/CUMM (4-12)
[2019-02-24] MEDS ORDERED: SODIUM CHLORIDE 0.9% 1,000 ML IV STA (14:07)
[2019-02-24 14:15] LABS: Alanine Aminotransferase 19 U/L (13-56); Albumin 3.4 G/DL (3.4-5.0); Alkaline Phosphatase 84 U/L (45-117); Aspartate Amino Transferase 19 U/L (0-37); Bilirubin,Total < 0.39 MG/DL (0.2-1.0); Blood Urea Nitrogen 41 MG/DL (7-18); Glucose 93 MG/DL (74-106); Osmolality,Calculated 282.8 MOS/KG (273-304); Potassium 4.4 MMOL/L (3.5-5.1); Sodium 137 MMOL/L (136-145); Total Protein 6.9 G/DL (6.4-8.3)
[2019-02-24 14:28] LABS: Apearance,Urine CLEAR (Clear); Bilirubin,Urine Negative (Negative); Blood, Urine Negative (Negative); Glucose,Urine (UA) Negative (Negative); Ketones,Urine Negative (Negative); Nitrite,Urine Negative (Negative); Protein,Urine Negative; RBC,Urine 1 /HPF (0-4); Urine Color Straw (Yellow); Urine Specific Gravity 1.011 (1.001-1.035); Urine Urobilinogen < 2.0 EU/DL (0.2-1.0)
[2019-02-24] MEDS ORDERED: LORazepam 1 MG TABLET PO PRN (15:54)
[2019-02-24] MEDS ORDERED: ZALEPLON 5 MG CAPSULE PO PRN (15:54)
[2019-02-24] MEDS ORDERED: SODIUM CHLORIDE 0.9% 1,000 ML IV PRN (15:56)
[2019-02-24] MEDS ORDERED: FUROSEMIDE 20 MG/2 ML VIAL IV SCH (16:00)
[2019-02-24] MEDS ORDERED: diphenhydrAMINE 50 MG/1 ML VIAL IV SCH (16:00)
[2019-02-24] MEDS ORDERED: ACETAMINOPHEN 325 MG TABLET PO SCH (16:00)
[2019-02-24] MEDS ORDERED: ONDANSETRON 4 MG/2 ML VIAL IV PRN (16:12)
[2019-02-24] MEDS ORDERED: MORPHINE 4 MG/1 ML VIAL IV PRN (16:12)
[2019-02-24 16:46] LABS: Risk Ratio 2.8; Thyroid Stimulating Hormone 86.2 uIU/ml (0.358-3.74); VLDL CHOLESTEROL 30.4 MG/DL
[2019-02-24] MEDS: SODIUM CHLORIDE 0.45% 1,000 ML IV SCH (17:55)
[2019-02-24] MEDS: FERROUS GLUCONATE 324 MG TABLET PO SCH (20:19)
[2019-02-24] MEDS: ROSUVASTATIN 10 MG TABLET PO SCH (20:19)
[2019-02-24] MEDS: PANTOPRAZOLE 40 MG TABLET PO SCH (20:19)
[2019-02-25 00:03] LABS: Hematocrit 24.3 VOL% (35.7-47.0); Hemoglobin 7.6 GM/DL (12.0-16.0)
[2019-02-25] MEDS ORDERED: SODIUM CHLORIDE 0.9% 1,000 ML IV PRN (00:24)
[2019-02-25] MEDS ORDERED: LEVOTHYROXINE 100 MCG VIAL IV SCH (06:30)
[2019-02-25 06:39] LABS: Basophils % 0.5 % (0.0-0.8); Eosinophils # 0.1 10*3/uL (0.0-0.87); Eosinophils % 1.3 % (0.00-10.9); Hematocrit 31.8 VOL% (35.7-47.0); Immature Granulocytes % 0.3 %; Immature Granulocytes Absolute 0.02 #; Lymphocytes # 1.3 10*3/uL (1.4-4.0); Lymphocytes % 21.9 % (21.3-54.2); Mean Corpuscular HGB Conc 32.4 GM/DL (32-36); Mean Corpuscular Hemoglobin 27 PG (27-34); Mean Corpuscular Volume 83.9 FL (87-102); Mean Platelet Volume 9.8 FL (9.6-12.0); Monocytes # 0.5 10*3/uL (0.11-0.8); Monocytes % 8.5 % (1.7-12.7); Neutrophils % 67.5 % (38.7-73.9)
[2019-02-25 06:58] LABS: Hemoglobin 10.3 GM/DL (12.0-16.0); Platelet Count 164 T/CUMM (130-400); Red Blood Count 3.79 MC/CUMM (3.8-5.5)
[2019-02-25 07:12] LABS: Alanine Aminotransferase 15 U/L (13-56); Albumin 2.7 G/DL (3.4-5.0); Alkaline Phosphatase 61 U/L (45-117); Aspartate Amino Transferase 14 U/L (0-37); Bilirubin,Total < 0.39 MG/DL (0.2-1.0); Blood Urea Nitrogen 42 MG/DL (7-18); Calcium 7.2 MG/DL (8.5-10.1); Glucose 86 MG/DL (74-106); Osmolality,Calculated 290.3 MOS/KG (273-304); Potassium 3.8 MMOL/L (3.5-5.1); Sodium 141 MMOL/L (136-145); Total Protein 5.6 G/DL (6.4-8.3)
[2019-02-25] MEDS: VALSARTAN 160 MG TABLET PO SCH (08:45)
[2019-02-25] MEDS: HYDROXYCHLOROQUINE 200 MG TABLET PO SCH (08:46)
[2019-02-25] MEDS: PANTOPRAZOLE 40 MG TABLET PO SCH ×2 (08:46→20:28)
[2019-02-25] MEDS: FERROUS GLUCONATE 324 MG TABLET PO SCH ×2 (08:46→20:28)
[2019-02-25] MEDS ORDERED: NALTREXONE HCL 50 MG PO SCH (09:00)
[2019-02-25] MEDS ORDERED: PANTOPRAZOLE 40 MG TABLET PO SCH (09:00)
[2019-02-25] MEDS: SODIUM CHLORIDE 0.45% 1,000 ML IV SCH ×2 (15:37→23:34)
[2019-02-25] MEDS: ROSUVASTATIN 10 MG TABLET PO SCH (20:28)
[2019-02-26 04:41] LABS: Basophils % 0.6 % (0.0-0.8); Eosinophils # 0.2 10*3/uL (0.0-0.87); Eosinophils % 2.4 % (0.00-10.9); Hematocrit 30.4 VOL% (35.7-47.0); Hemoglobin 9.7 GM/DL (12.0-16.0); Immature Granulocytes % 0.6 %; Immature Granulocytes Absolute 0.04 #; Lymphocytes # 1.9 10*3/uL (1.4-4.0); Lymphocytes % 26.1 % (21.3-54.2); Mean Corpuscular HGB Conc 31.9 GM/DL (32-36); Mean Corpuscular Hemoglobin 27 PG (27-34); Mean Corpuscular Volume 85.4 FL (87-102); Mean Platelet Volume 10.1 FL (9.6-12.0); Monocytes # 0.6 10*3/uL (0.11-0.8); Monocytes % 8.6 % (1.7-12.7); Neutrophils # 4.4 10*3/uL (1.4-7.4); Neutrophils % 61.7 % (38.7-73.9); Platelet Count 173 T/CUMM (130-400); Red Blood Count 3.56 MC/CUMM (3.8-5.5); Red Cell Distribution Width 14.2 % (9.3-17.3); White Blood Count 7.1 T/CUMM (4-12)
[2019-02-26 04:56] LABS: Albumin 2.8 G/DL (3.4-5.0); Bilirubin,Total 0.5 MG/DL (0.2-1.0); Calcium 7.6 MG/DL (8.5-10.1); Osmolality,Calculated 288.3 MOS/KG (273-304); Potassium 3.7 MMOL/L (3.5-5.1)
[2019-02-26] MEDS ORDERED: PREGABALIN 75 MG CAPSULE PO SCH (09:00)
[2019-02-26] MEDS ORDERED: MYCOPHENOLATE MOFETIL 250 MG CAPSULE PO SCH (09:00)
[2019-02-26] MEDS ORDERED: DULoxetine 30 MG CAPSULE PO SCH (09:00)
[2019-02-26] MEDS ORDERED: LACTATED RINGERS 500 ML IV ONE (11:55)
[2019-02-26] MEDS ORDERED: LIDOCAINE 2% 5 ML VIAL ONE (12:30)
[2019-02-26] MEDS ORDERED: PROPOFOL 200 MG/20 ML VIAL IV ONE (12:30)
[2019-02-26] MEDS: VALSARTAN 160 MG TABLET PO SCH (14:51)
[2019-02-26] MEDS: PANTOPRAZOLE 40 MG TABLET PO SCH (14:51)
[2019-02-26] MEDS: HYDROXYCHLOROQUINE 200 MG TABLET PO SCH (14:51)
[2019-02-26] MEDS: FERROUS GLUCONATE 324 MG TABLET PO SCH (14:53)
[2019-02-26 16:50] VITALS: BP 120/58
[2019-02-27] MEDS ORDERED: LEVOTHYROXINE 150 MCG TABLET PO SCH ×2 (06:00→06:30)
[2019-02-27] MEDS ORDERED: FERROUS GLUCONATE 324 MG TABLET PO SCH (18:00)
== END 2019-02-26 19:17 | disposition home or self-care (01) | DRG 812 ==
LOC: N.ED 11:43 → N.EDINP 16:12 → N.5E 16:59
PROVIDERS: ADMIT Internal Medicine; ATTEND Internal Medicine

== ENCOUNTER 2020-04-20 07:28 | Inpatient (IN) ==
[2020-04-20] MEDS ORDERED: ONDANSETRON 4 MG/2 ML VIAL IV STA (07:50)
[2020-04-20] MEDS ORDERED: PANTOPRAZOLE 40 MG VIAL IV STA (07:50)
[2020-04-20] MEDS ORDERED: SODIUM CHLORIDE 0.9% 1,000 ML IV STA (07:50)
[2020-04-20] MEDS ORDERED: OCTREOTIDE 100 MCG/ML SYRINGE IV STA (08:02)
[2020-04-20 08:23] LABS: Basophils % 0.6 % (0.0-0.8); Eosinophils # 0.1 10*3/uL (0.0-0.87); Eosinophils % 1.7 % (0.00-10.9); Hematocrit 30.6 VOL% (35.7-47.0); Hemoglobin 9.5 GM/DL (12.0-16.0); Immature Granulocytes % 0.6 %; Immature Granulocytes Absolute 0.04 #; Lymphocytes # 1.5 10*3/uL (1.4-4.0); Lymphocytes % 21.8 % (21.3-54.2); Mean Corpuscular Volume 87.2 FL (87-102); Mean Platelet Volume 9.4 FL (9.6-12.0); Monocytes % 7.8 % (1.7-12.7); Neutrophils % 67.5 % (38.7-73.9); Platelet Count 274 T/CUMM (130-400); Red Blood Count 3.51 MC/CUMM (3.8-5.5); Red Cell Distribution Width 13.3 % (9.3-17.3); White Blood Count 7.1 T/CUMM (4-12)
[2020-04-20 08:34] LABS: PT Patient Result 10.9 SECS (9.8-11.9); Partial Thromboplastin Time 22.1 SECS (23.9-33.8)
[2020-04-20 08:39] LABS: Alanine Aminotransferase 20 U/L (13-56); Albumin 3.5 G/DL (3.4-5.0); Alkaline Phosphatase 118 U/L (45-117); Aspartate Amino Transferase 11 U/L (0-37); Bilirubin,Total < 0.39 MG/DL (0.2-1.0); Blood Urea Nitrogen 50 MG/DL (7-18); Calcium 8.6 MG/DL (8.5-10.1); Estimated Glom Filtration Rate 43 ML/MIN; Glucose 117 MG/DL (74-106); Osmolality,Calculated 292.4 MOS/KG (273-304); Total Protein 7.6 G/DL (6.4-8.3)
[2020-04-20 08:40] LABS: % Iron Saturation 42.3 % (18-50); Ferritin 19.6 ng/ml (8-252)
[2020-04-20] MEDS: OCTREOTIDE 500 MCG in SODIUM CHLORIDE 0.9% 100 ML IV SCH ×2 (09:43→18:00)
[2020-04-20] MEDS ORDERED: GLUCAGON 1 MG VIAL IM PRN (10:23)
[2020-04-20] MEDS ORDERED: DEXTROSE 10% 250 ML BAG IV PRN (10:23)
[2020-04-20] MEDS ORDERED: SODIUM CHLORIDE 0.9% 1,000 ML IV PRN (10:46)
[2020-04-20] MEDS: SODIUM CHLORIDE 0.9% 1,000 ML IV SCH ×2 (14:15→22:15)
[2020-04-20 14:49] LABS: Hematocrit 27.1 VOL% (35.7-47.0); Hemoglobin 8.4 GM/DL (12.0-16.0)
[2020-04-20 20:36] LABS: Hematocrit 25.7 VOL% (35.7-47.0); Hemoglobin 7.9 GM/DL (12.0-16.0)
[2020-04-21 05:27] LABS: Basophils % 0.6 % (0.0-0.8); Eosinophils # 0.1 10*3/uL (0.0-0.87); Eosinophils % 2.3 % (0.00-10.9); Hematocrit 21.3 VOL% (35.7-47.0); Hemoglobin 6.5 GM/DL (12.0-16.0); Immature Granulocytes % 0.4 %; Immature Granulocytes Absolute 0.02 #; Lymphocytes # 1.2 10*3/uL (1.4-4.0); Lymphocytes % 25.4 % (21.3-54.2); Mean Corpuscular HGB Conc 30.5 GM/DL (32-36); Mean Platelet Volume 9.8 FL (9.6-12.0); Monocytes % 7.6 % (1.7-12.7); Neutrophils % 63.7 % (38.7-73.9); Platelet Count 177 T/CUMM (130-400); Red Blood Count 2.42 MC/CUMM (3.8-5.5); Red Cell Distribution Width 13.3 % (9.3-17.3); White Blood Count 4.8 T/CUMM (4-12)
[2020-04-21] MEDS: OCTREOTIDE 500 MCG in SODIUM CHLORIDE 0.9% 100 ML IV SCH ×2 (05:28→14:57)
[2020-04-21] MEDS: SODIUM CHLORIDE 0.9% 1,000 ML IV SCH ×3 (05:30→16:48)
[2020-04-21 05:37] LABS: Calcium 7.9 MG/DL (8.5-10.1)
[2020-04-21] MEDS ORDERED: SODIUM CHLORIDE 0.9% 1,000 ML IV PRN ×2 (06:11→07:09)
[2020-04-21] MEDS ORDERED: ZALEPLON 5 MG CAPSULE PO PRN (09:16)
[2020-04-21] MEDS: PANTOPRAZOLE 40 MG VIAL IV SCH (10:47)
[2020-04-21 13:07] LABS: Hematocrit 25.1 VOL% (35.7-47.0); Hemoglobin 7.8 GM/DL (12.0-16.0)
[2020-04-22] MEDS: OCTREOTIDE 500 MCG in SODIUM CHLORIDE 0.9% 100 ML IV SCH ×3 (00:45→21:06)
[2020-04-22] MEDS ORDERED: ALUM/MAG/SIMETH/LIDO VISC 1:1 30 ML BOTTLE PO ONE (03:06)
[2020-04-22 06:35] LABS: Basophils % 0.4 % (0.0-0.8); Eosinophils # 0.2 10*3/uL (0.0-0.87); Eosinophils % 4.2 % (0.00-10.9); Hematocrit 23.7 VOL% (35.7-47.0); Hemoglobin 7.5 GM/DL (12.0-16.0); Immature Granulocytes % 0.6 %; Immature Granulocytes Absolute 0.03 #; Lymphocytes # 0.9 10*3/uL (1.4-4.0); Lymphocytes % 18.2 % (21.3-54.2); Mean Corpuscular HGB Conc 31.6 GM/DL (32-36); Mean Corpuscular Volume 88.1 FL (87-102); Mean Platelet Volume 9.6 FL (9.6-12.0); Monocytes % 7.5 % (1.7-12.7); Neutrophils % 69.1 % (38.7-73.9); Platelet Count 167 T/CUMM (130-400); Red Blood Count 2.69 MC/CUMM (3.8-5.5); Red Cell Distribution Width 13.3 % (9.3-17.3); White Blood Count 5.1 T/CUMM (4-12)
[2020-04-22 06:50] LABS: Calcium 7.9 MG/DL (8.5-10.1)
[2020-04-22] MEDS: PANTOPRAZOLE 40 MG VIAL IV SCH (09:09)
[2020-04-22 12:52] LABS: Hematocrit 24.5 VOL% (35.7-47.0); Hemoglobin 7.4 GM/DL (12.0-16.0)
[2020-04-22] MEDS: SODIUM CHLORIDE 0.9% 1,000 ML IV SCH (17:13)
[2020-04-22 18:03] LABS: Hematocrit 21.2 VOL% (35.7-47.0); Hemoglobin 6.5 GM/DL (12.0-16.0)
[2020-04-22] MEDS ORDERED: NORTRIPTYLINE 25 MG CAPSULE PO PRN (19:45)
[2020-04-22] MEDS ORDERED: CETIRIZINE 10 MG TABLET PO PRN (19:45)
[2020-04-22] MEDS ORDERED: Eszopiclone [Lunesta] 3 MG PO SCH (21:00)
[2020-04-22] MEDS: ROSUVASTATIN 10 MG TABLET PO SCH (21:07)
[2020-04-22] MEDS: carBAMazepine 200 MG TABLET PO SCH (21:07)
[2020-04-23] MEDS ORDERED: SODIUM CHLORIDE 0.9% 1,000 ML IV PRN (00:08)
[2020-04-23] MEDS: SODIUM CHLORIDE 0.9% 1,000 ML IV SCH ×2 (03:33→03:35)
[2020-04-23] MEDS: OCTREOTIDE 500 MCG in SODIUM CHLORIDE 0.9% 100 ML IV SCH (06:02)
[2020-04-23] MEDS: LEVOTHYROXINE 100 MCG TABLET PO SCH (06:10)
[2020-04-23 07:24] LABS: Basophils % 0.6 % (0.0-0.8); Eosinophils # 0.2 10*3/uL (0.0-0.87); Hematocrit 27.8 VOL% (35.7-47.0); Hemoglobin 8.5 GM/DL (12.0-16.0); Immature Granulocytes % 0.8 %; Immature Granulocytes Absolute 0.04 #; Lymphocytes % 18.9 % (21.3-54.2); Mean Corpuscular HGB Conc 30.6 GM/DL (32-36); Mean Corpuscular Volume 84.2 FL (87-102); Mean Platelet Volume 9.2 FL (9.6-12.0); Neutrophils % 69.7 % (38.7-73.9); Platelet Count 144 T/CUMM (130-400); Red Cell Distribution Width 15.5 % (9.3-17.3); White Blood Count 5.3 T/CUMM (4-12)
[2020-04-23 07:46] LABS: Calcium 7.3 MG/DL (8.5-10.1)
[2020-04-23] MEDS ORDERED: HydrOXYzine PAMOATE 25 MG CAPSULE PO PRN (09:00)
[2020-04-23] MEDS: hydroCHLOROthiazide 25 MG TABLET PO SCH (09:54)
[2020-04-23] MEDS: PREGABALIN 75 MG CAPSULE PO SCH (09:54)
[2020-04-23] MEDS: HYDROXYCHLOROQUINE 200 MG TABLET PO SCH (09:54)
[2020-04-23] MEDS: carBAMazepine 200 MG TABLET PO SCH ×2 (09:54→21:10)
[2020-04-23] MEDS: FOLIC ACID 0.4 MG TABLET PO SCH (09:54)
[2020-04-23] MEDS: PANTOPRAZOLE 40 MG TABLET PO SCH ×2 (09:54→21:10)
[2020-04-23] MEDS: MYCOPHENOLATE MOFETIL 250 MG CAPSULE PO SCH (09:54)
[2020-04-23] MEDS: CHOLECALCIFEROL 5,000 UNIT TABLET PO SCH (09:54)
[2020-04-23 13:01] LABS: Hematocrit 27.2 VOL% (35.7-47.0); Hemoglobin 8.4 GM/DL (12.0-16.0)
[2020-04-23] MEDS: ROSUVASTATIN 10 MG TABLET PO SCH (21:10)
[2020-04-24 05:47] LABS: Basophils % 0.2 % (0.0-0.8); Eosinophils # 0.2 10*3/uL (0.0-0.87); Eosinophils % 3.7 % (0.00-10.9); Hemoglobin 8.7 GM/DL (12.0-16.0); Immature Granulocytes % 0.6 %; Immature Granulocytes Absolute 0.04 #; Lymphocytes # 1.1 10*3/uL (1.4-4.0); Lymphocytes % 16.9 % (21.3-54.2); Mean Corpuscular HGB Conc 31.1 GM/DL (32-36); Mean Corpuscular Volume 82.8 FL (87-102); Monocytes % 11.5 % (1.7-12.7); Neutrophils % 67.1 % (38.7-73.9); Platelet Count 162 T/CUMM (130-400); Red Blood Count 3.38 MC/CUMM (3.8-5.5); White Blood Count 6.2 T/CUMM (4-12)
[2020-04-24] MEDS: LEVOTHYROXINE 100 MCG TABLET PO SCH (05:51)
[2020-04-24] MEDS ORDERED: LIDOCAINE 2% 5 ML VIAL ONE (09:00)
[2020-04-24] MEDS ORDERED: propofoL 200 MG/20 ML VIAL IV ONE (09:00)
[2020-04-24] MEDS: LACTATED RINGERS 1,000 ML IV SCH (10:25)
[2020-04-24] MEDS ORDERED: BISACODYL 5 MG TABLET PO ONE (12:00)
[2020-04-24] MEDS: PREGABALIN 75 MG CAPSULE PO SCH (12:03)
[2020-04-24] MEDS: PANTOPRAZOLE 40 MG TABLET PO SCH ×2 (12:03→21:18)
[2020-04-24] MEDS: hydroCHLOROthiazide 25 MG TABLET PO SCH (12:03)
[2020-04-24] MEDS: FOLIC ACID 0.4 MG TABLET PO SCH (12:03)
[2020-04-24] MEDS: HYDROXYCHLOROQUINE 200 MG TABLET PO SCH (12:03)
[2020-04-24] MEDS: MYCOPHENOLATE MOFETIL 250 MG CAPSULE PO SCH (12:03)
[2020-04-24] MEDS: CHOLECALCIFEROL 5,000 UNIT TABLET PO SCH (12:04)
[2020-04-24] MEDS: carBAMazepine 200 MG TABLET PO SCH ×2 (12:04→21:18)
[2020-04-24] MEDS ORDERED: POLYETHYLENE GLYCOL POWDER 255 GM BOTTLE PO ONE (18:00)
[2020-04-24] MEDS: ROSUVASTATIN 10 MG TABLET PO SCH (21:18)
[2020-04-25 05:18] LABS: Basophils % 0.4 % (0.0-0.8); Eosinophils # 0.2 10*3/uL (0.0-0.87); Eosinophils % 4.4 % (0.00-10.9); Hematocrit 27.3 VOL% (35.7-47.0); Hemoglobin 8.6 GM/DL (12.0-16.0); Immature Granulocytes % 0.4 %; Immature Granulocytes Absolute 0.02 #; Lymphocytes # 1.3 10*3/uL (1.4-4.0); Lymphocytes % 24.3 % (21.3-54.2); Mean Corpuscular HGB Conc 31.5 GM/DL (32-36); Mean Corpuscular Volume 80.8 FL (87-102); Mean Platelet Volume 10.4 FL (9.6-12.0); Monocytes % 12.1 % (1.7-12.7); Neutrophils % 58.4 % (38.7-73.9); Platelet Count 166 T/CUMM (130-400); Red Blood Count 3.38 MC/CUMM (3.8-5.5); Red Cell Distribution Width 15.6 % (9.3-17.3); White Blood Count 5.2 T/CUMM (4-12)
[2020-04-25] MEDS: LEVOTHYROXINE 100 MCG TABLET PO SCH (05:34)
[2020-04-25 05:59] LABS: Albumin 2.5 G/DL (3.4-5.0); Bilirubin,Total 0.8 MG/DL (0.2-1.0); Calcium 7.9 MG/DL (8.5-10.1); Osmolality,Calculated 279.1 MOS/KG (273-304); Total Protein 5.7 G/DL (6.4-8.3)
[2020-04-25] MEDS ORDERED: LACTATED RINGERS 1,000 ML IV SCH (07:00)
[2020-04-25] MEDS ORDERED: POLYETHYLENE GLYCOL POWDER 255 GM BOTTLE PO ONE (10:24)
[2020-04-25] MEDS: CHOLECALCIFEROL 5,000 UNIT TABLET PO SCH (10:37)
[2020-04-25] MEDS: FOLIC ACID 0.4 MG TABLET PO SCH (10:37)
[2020-04-25] MEDS: hydroCHLOROthiazide 25 MG TABLET PO SCH (10:37)
[2020-04-25] MEDS: PANTOPRAZOLE 40 MG TABLET PO SCH ×2 (10:37→21:04)
[2020-04-25] MEDS: PREGABALIN 75 MG CAPSULE PO SCH (10:38)
[2020-04-25] MEDS: HYDROXYCHLOROQUINE 200 MG TABLET PO SCH (10:38)
[2020-04-25] MEDS: MYCOPHENOLATE MOFETIL 250 MG CAPSULE PO SCH (10:38)
[2020-04-25] MEDS: carBAMazepine 200 MG TABLET PO SCH ×2 (10:43→21:03)
[2020-04-25] MEDS: POTASSIUM CHLORIDE 20 MEQ TABLET PO PRN ×2 (16:12→18:36)
[2020-04-25] MEDS ORDERED: POTASSIUM CHLORIDE 20 MEQ TABLET PO ONE (18:50)
[2020-04-25] MEDS: ROSUVASTATIN 10 MG TABLET PO SCH (21:03)
[2020-04-26 05:10] LABS: Basophils % 0.6 % (0.0-0.8); Eosinophils # 0.2 10*3/uL (0.0-0.87); Eosinophils % 4.4 % (0.00-10.9); Hematocrit 28.4 VOL% (35.7-47.0); Hemoglobin 8.8 GM/DL (12.0-16.0); Immature Granulocytes % 0.6 %; Immature Granulocytes Absolute 0.03 #; Lymphocytes # 1.3 10*3/uL (1.4-4.0); Lymphocytes % 25.6 % (21.3-54.2); Mean Corpuscular Volume 83.5 FL (87-102); Mean Platelet Volume 9.8 FL (9.6-12.0); Monocytes % 10.7 % (1.7-12.7); Neutrophils % 58.1 % (38.7-73.9); Platelet Count 184 T/CUMM (130-400); Red Cell Distribution Width 15.6 % (9.3-17.3); White Blood Count 5.2 T/CUMM (4-12)
[2020-04-26] MEDS: LACTATED RINGERS 1,000 ML IV SCH (05:11)
[2020-04-26 05:23] LABS: Calcium 7.9 MG/DL (8.5-10.1); Osmolality,Calculated 276.3 MOS/KG (273-304)
[2020-04-26] MEDS: LEVOTHYROXINE 100 MCG TABLET PO SCH (05:30)
[2020-04-26] MEDS ORDERED: LACTATED RINGERS 1,000 ML IV SCH (07:00)
[2020-04-26] MEDS ORDERED: propofoL 200 MG/20 ML VIAL IV ONE (09:00)
[2020-04-26] MEDS ORDERED: LIDOCAINE 2% 5 ML VIAL ONE (09:00)
[2020-04-26] MEDS: PANTOPRAZOLE 40 MG TABLET PO SCH (12:32)
[2020-04-26] MEDS: carBAMazepine 200 MG TABLET PO SCH (12:32)
[2020-04-26] MEDS: CHOLECALCIFEROL 5,000 UNIT TABLET PO SCH (12:32)
[2020-04-26] MEDS: MYCOPHENOLATE MOFETIL 250 MG CAPSULE PO SCH (12:32)
[2020-04-26] MEDS: FOLIC ACID 0.4 MG TABLET PO SCH (12:32)
[2020-04-26] MEDS: PREGABALIN 75 MG CAPSULE PO SCH (12:33)
[2020-04-26] MEDS: HYDROXYCHLOROQUINE 200 MG TABLET PO SCH (12:33)
[2020-04-26 14:01] VITALS: BP 118/58
== END 2020-04-26 14:20 | disposition home or self-care (01) | DRG 813 ==
LOC: N.ED 07:28 → N.EDINP 10:23 → SUATTDRO 10:23 → N.EDINP 12:50 → N.3E 12:54 → N.4E 04-25 16:30
PROVIDERS: ADMIT Internal Medicine Geriatric Medicine; ATTEND Internal Medicine

== ENCOUNTER 2021-06-11 09:33 | Observation (INO) ==
[2021-06-11] MEDS ORDERED: SODIUM CHLORIDE 0.9% 1,000 ML IV STA (10:10)
[2021-06-11 11:20] LABS: Amorphous Crystals,Urine Occasional /HPF (Few); Bilirubin,Urine Negative (Negative); Blood, Urine Negative (Negative); Glucose,Urine (UA) Negative (Negative); Hyaline Casts,Urine 3 /LPF (0-3); Ketones,Urine Negative (Negative); Nitrite,Urine Negative (Negative); Protein,Urine Negative; RBC,Urine 5 /HPF (0-4); Squamous Epithelial Cell,Urine Occasional /HPF (0-10); Urine Appearance Slightly Hazy (Clear); Urine Color Yellow (Yellow); Urine Specific Gravity 1.006 (1.001-1.035); Urine Urobilinogen < 2.0 EU/DL (0.2-1.0)
[2021-06-11 12:49] LABS: Basophils % 0.2 % (0.0-0.8); Eosinophils # 0.1 10*3/uL (0.0-0.87); Eosinophils % 1.5 % (0.00-10.9); Hematocrit 39.4 VOL% (35.7-47.0); Hemoglobin 11.8 GM/DL (12.0-16.0); Immature Granulocytes % 0.4 %; Immature Granulocytes Absolute 0.02 #; Lymphocytes # 0.5 10*3/uL (1.4-4.0); Lymphocytes % 9.4 % (21.3-54.2); Mean Corpuscular HGB Conc 29.9 GM/DL (32-36); Mean Corpuscular Volume 87.4 FL (87-102); Mean Platelet Volume 9.6 FL (9.6-12.0); Monocytes % 9.2 % (1.7-12.7); Neutrophils % 79.3 % (38.7-73.9); Platelet Count 255 T/CUMM (130-400); Red Blood Count 4.51 MC/CUMM (3.8-5.5); Red Cell Distribution Width 13.6 % (9.3-17.3); White Blood Count 5.2 T/CUMM (4-12)
[2021-06-11 13:01] LABS: PT Patient Result 10.9 SECS (10.5-12.0)
[2021-06-11 13:31] LABS: Alanine Aminotransferase 18 U/L (13-56); Albumin 3.5 G/DL (3.4-5.0); Alkaline Phosphatase 108 U/L (45-117); Aspartate Amino Transferase 18 U/L (0-37); Bilirubin,Total < 0.39 MG/DL (0.20-1.00); Blood Urea Nitrogen 14 MG/DL (7-18); Calcium 8.8 MG/DL (8.5-10.1); Carbon Dioxide 22 MMOL/L (21-32); Estimated Glom Filtration Rate 41 ML/MIN; Glucose 97 MG/DL (74-106); Osmolality,Calculated 279.4 MOS/KG (273-304); Potassium 4.3 MMOL/L (3.5-5.1); Sodium 140 MMOL/L (136-145); Total Protein 7.8 G/DL (6.4-8.2)
[2021-06-11] MEDS ORDERED: ONDANSETRON 4 MG/2 ML VIAL IV PRN (15:26)
[2021-06-11] MEDS ORDERED: ACETAMINOPHEN 325 MG TABLET PO PRN (15:26)
[2021-06-11] MEDS ORDERED: GLUCAGON 1 MG VIAL IM PRN (15:26)
[2021-06-11] MEDS ORDERED: DEXTROSE 50% 25 GM/50 ML VIAL IV PRN (15:26)
[2021-06-11] MEDS ORDERED: PREGABALIN 100 MG CAPSULE PO PRN (15:51)
[2021-06-11] MEDS ORDERED: diphenhydrAMINE CAP 25 MG CAPSULE PO PRN (15:51)
[2021-06-11] MEDS ORDERED: ZALEPLON 5 MG CAPSULE PO PRN (16:13)
[2021-06-11] MEDS: LEVOTHYROXINE 50 MCG TABLET PO SCH (17:36)
[2021-06-11] MEDS: DOXYCYCLINE HYCLATE 100 MG CAPSULE PO SCH (20:51)
[2021-06-11] MEDS: OXYMETAZOLINE 0.05% NASAL SPRAY 15 ML BOTTLE BOTH NARES SCH (20:51)
[2021-06-11] MEDS: ENOXAPARIN 30 MG/0.3 ML SYRINGE SUBCUT SCH (20:51)
[2021-06-11] MEDS: DULoxetine 30 MG CAPSULE PO SCH (20:51)
[2021-06-11] MEDS: BENZONATATE 100 MG CAPSULE PO PRN (20:51)
[2021-06-12 05:40] LABS: Basophils % 0.8 % (0.0-0.8); Eosinophils # 0.1 10*3/uL (0.0-0.87); Eosinophils % 1.8 % (0.00-10.9); Hematocrit 33.7 VOL% (35.7-47.0); Hemoglobin 10.7 GM/DL (12.0-16.0); Immature Granulocytes % 0.5 %; Immature Granulocytes Absolute 0.02 #; Lymphocytes # 0.9 10*3/uL (1.4-4.0); Lymphocytes % 23.7 % (21.3-54.2); Mean Corpuscular HGB Conc 31.8 GM/DL (32-36); Mean Corpuscular Volume 84.5 FL (87-102); Mean Platelet Volume 10.2 FL (9.6-12.0); Monocytes % 16.1 % (1.7-12.7); Neutrophils % 57.1 % (38.7-73.9); Platelet Count 217 T/CUMM (130-400); Red Blood Count 3.99 MC/CUMM (3.8-5.5); Red Cell Distribution Width 13.5 % (9.3-17.3)
[2021-06-12] MEDS: LEVOTHYROXINE 50 MCG TABLET PO SCH (05:51)
[2021-06-12 06:08] LABS: Calcium 8.4 MG/DL (8.5-10.1); Eosinophils 1 % (0-10); Hypochromasia 1+; Lymphocytes 21 % (20-55); Microcytosis 1+; Osmolality,Calculated 276.5 MOS/KG (273-304); Platelet Estimate Adequate; Potassium 3.8 MMOL/L (3.5-5.1); Risk Ratio 3.28; Segmented Neutrophils 60 % (50-85); Total Cells Counted 100
[2021-06-12] MEDS: DOXYCYCLINE HYCLATE 100 MG CAPSULE PO SCH ×2 (08:31→20:22)
[2021-06-12] MEDS: OXYMETAZOLINE 0.05% NASAL SPRAY 15 ML BOTTLE BOTH NARES SCH ×2 (08:31→20:23)
[2021-06-12] MEDS: PANTOPRAZOLE 40 MG TABLET PO SCH (08:31)
[2021-06-12] MEDS: MYCOPHENOLATE MOFETIL 250 MG CAPSULE PO SCH (08:32)
[2021-06-12] MEDS: HYDROXYCHLOROQUINE 200 MG TABLET PO SCH (08:32)
[2021-06-12] MEDS: DULoxetine 30 MG CAPSULE PO SCH ×2 (08:32→20:22)
[2021-06-12] MEDS: BENZONATATE 100 MG CAPSULE PO PRN ×2 (08:35→18:05)
[2021-06-12] MEDS ORDERED: LOSARTAN 50 MG TABLET PO SCH (09:00)
[2021-06-12] MEDS: ENOXAPARIN 30 MG/0.3 ML SYRINGE SUBCUT SCH (20:23)
[2021-06-13 06:26] LABS: Basophils % 0.7 % (0.0-0.8); Eosinophils # 0.1 10*3/uL (0.0-0.87); Eosinophils % 3.8 % (0.00-10.9); Hematocrit 35.4 VOL% (35.7-47.0); Hemoglobin 11.3 GM/DL (12.0-16.0); Immature Granulocytes % 0.7 %; Immature Granulocytes Absolute 0.02 #; Lymphocytes # 0.8 10*3/uL (1.4-4.0); Lymphocytes % 27.4 % (21.3-54.2); Mean Corpuscular HGB Conc 31.9 GM/DL (32-36); Mean Corpuscular Volume 83.5 FL (87-102); Mean Platelet Volume 10.4 FL (9.6-12.0); Monocytes % 14.4 % (1.7-12.7); Platelet Count 228 T/CUMM (130-400); Red Blood Count 4.24 MC/CUMM (3.8-5.5); Red Cell Distribution Width 13.3 % (9.3-17.3); White Blood Count 2.9 T/CUMM (4-12)
[2021-06-13] MEDS: LEVOTHYROXINE 50 MCG TABLET PO SCH (06:33)
[2021-06-13 06:46] LABS: Calcium 8.6 MG/DL (8.5-10.1); Osmolality,Calculated 274.8 MOS/KG (273-304); Potassium 4.2 MMOL/L (3.5-5.1)
[2021-06-13 07:14] LABS: Band Neutrophils 3 % (0-10); Hypochromasia 1+; Lymphocytes 31 % (20-55); Segmented Neutrophils 53 % (50-85); Total Cells Counted 100
[2021-06-13 07:15] LABS: Microcytosis 1+; Ovalocytes Slight
[2021-06-13 07:16] LABS: Platelet Estimate Normal
[2021-06-13] MEDS: OXYMETAZOLINE 0.05% NASAL SPRAY 15 ML BOTTLE BOTH NARES SCH (09:11)
[2021-06-13] MEDS: HYDROXYCHLOROQUINE 200 MG TABLET PO SCH (09:12)
[2021-06-13] MEDS: DOXYCYCLINE HYCLATE 100 MG CAPSULE PO SCH (09:12)
[2021-06-13] MEDS: PANTOPRAZOLE 40 MG TABLET PO SCH (09:12)
[2021-06-13] MEDS: MYCOPHENOLATE MOFETIL 250 MG CAPSULE PO SCH (09:12)
[2021-06-13] MEDS: DULoxetine 30 MG CAPSULE PO SCH (09:12)
[2021-06-13 11:27] VITALS: BP 112/51
== END 2021-06-13 13:20 | disposition home or self-care (01) ==
LOC: N.ED 09:33 → N.EDINP 09:33 → SUATTDRO 15:26 → N.5E 16:06
PROVIDERS: ADMIT Internal Medicine; ATTEND Internal Medicine

== ENCOUNTER 2022-10-21 14:25 | Inpatient (IN) ==
[2022-10-21 14:56] LABS: Basophils # 0.1 10*3/uL (0.0-0.2); Basophils % 1.1 % (0.0-0.8); Eosinophils # 0.2 10*3/uL (0.0-0.87); Eosinophils % 4.2 % (0.00-10.9); Hematocrit 35.8 VOL% (35.7-47.0); Hemoglobin 11.6 GM/DL (12.0-16.0); Immature Granulocytes % 0.9 %; Immature Granulocytes Absolute 0.05 #; Lymphocytes # 1.9 10*3/uL (1.4-4.0); Lymphocytes % 32.6 % (21.3-54.2); Mean Corpuscular HGB Conc 32.4 GM/DL (32-36); Mean Corpuscular Volume 82.3 FL (87-102); Mean Platelet Volume 9.3 FL (9.6-12.0); Monocytes # 0.4 10*3/uL (0.11-0.8); Monocytes % 7.5 % (1.7-12.7); Neutrophils % 53.7 % (38.7-73.9); Platelet Count 417 T/CUMM (130-400); Red Blood Count 4.35 MC/CUMM (3.8-5.5); Red Cell Distribution Width 13.7 % (9.3-17.3); White Blood Count 5.7 T/CUMM (4-12)
[2022-10-21 15:39] LABS: Alanine Aminotransferase 19 U/L (13-56); Albumin 3.6 G/DL (3.4-5.0); Alkaline Phosphatase 85 U/L (45-117); Aspartate Amino Transferase 17 U/L (0-37); Bilirubin,Total < 0.39 MG/DL (0.20-1.00); Blood Urea Nitrogen 47 MG/DL (7-18); Calcium 9.5 MG/DL (8.5-10.1); Carbon Dioxide 24 MMOL/L (21-32); Chloride 103 MMOL/L (98-107); Glucose 99 MG/DL (74-106); Potassium 4.4 MMOL/L (3.5-5.1); Sodium 136 MMOL/L (136-145)
[2022-10-21] MEDS ORDERED: SODIUM CHLORIDE 0.9% 1,000 ML IV STA (20:28)
[2022-10-21 20:45] LABS: PT Patient Result 10.9 SECS (10.1-12.1); Partial Thromboplastin Time 27.3 SECS (23.7-32.9)
[2022-10-21 22:05] LABS: Hyaline Casts,Urine 1 /LPF (0-3); Mucus,Urine Occasional /LPF (Occasional); RBC,Urine 2 /HPF (0-4); Squamous Epithelial Cell,Urine Occasional /HPF (0-10); Urine Color Yellow (Yellow)
[2022-10-21 22:06] LABS: Bilirubin,Urine Negative (Negative); Blood, Urine Negative (Negative); Glucose,Urine (UA) Negative (Negative); Ketones,Urine Negative (Negative); Nitrite,Urine Negative (Negative); Protein,Urine Negative (Negative); Urine Appearance Clear (Clear); Urine Specific Gravity 1.015 (1.001-1.035); Urine Urobilinogen 0.2 eU/dL (<2.0); Urine pH 5.5 (4.5-8.0)
[2022-10-22] MEDS ORDERED: ACETAMINOPHEN 325 MG TABLET PO PRN (00:52)
[2022-10-22] MEDS ORDERED: ALUMINUM/MAGNES/SIMETH MAX STR 30 ML UDCUP PO PRN (00:52)
[2022-10-22] MEDS ORDERED: ONDANSETRON 4 MG/2 ML VIAL IV PRN (00:52)
[2022-10-22] MEDS: SODIUM CHLORIDE 0.9% 1,000 ML IV SCH ×2 (01:30→13:43)
[2022-10-22 05:42] LABS: Basophils % 0.7 % (0.0-0.8); Eosinophils # 0.2 10*3/uL (0.0-0.87); Hematocrit 31.2 VOL% (35.7-47.0); Hemoglobin 10.1 GM/DL (12.0-16.0); Immature Granulocytes % 0.5 %; Immature Granulocytes Absolute 0.03 #; Lymphocytes # 1.6 10*3/uL (1.4-4.0); Lymphocytes % 29.4 % (21.3-54.2); Mean Corpuscular HGB Conc 32.4 GM/DL (32-36); Mean Corpuscular Volume 83.2 FL (87-102); Mean Platelet Volume 9.6 FL (9.6-12.0); Monocytes # 0.5 10*3/uL (0.11-0.8); Monocytes % 8.7 % (1.7-12.7); Neutrophils % 56.7 % (38.7-73.9); Platelet Count 319 T/CUMM (130-400); Red Blood Count 3.75 MC/CUMM (3.8-5.5); Red Cell Distribution Width 13.7 % (9.3-17.3); White Blood Count 5.5 T/CUMM (4-12)
[2022-10-22 06:17] LABS: Calcium 8.6 MG/DL (8.5-10.1); Osmolality,Calculated 289.3 MOS/KG (273-304); Potassium 3.8 MMOL/L (3.5-5.1)
[2022-10-22] MEDS: LEVOTHYROXINE 125 MCG TABLET PO SCH (06:32)
[2022-10-22] MEDS: PANTOPRAZOLE 40 MG TABLET PO SCH (08:36)
[2022-10-22] MEDS: DOCUSATE SODIUM 100 MG CAPSULE PO SCH ×2 (08:37→22:10)
[2022-10-22] MEDS ORDERED: HEPARIN 5,000 UNIT/1 ML VIAL SUBCUT SCH (09:00)
[2022-10-22 13:24] LABS: % Iron Saturation 9.6 % (18-50)
[2022-10-22 13:37] LABS: Folate 4.13 NG/ML (5.38-24.0)
[2022-10-23] MEDS: SODIUM CHLORIDE 0.9% 1,000 ML IV SCH (03:23)
[2022-10-23 05:28] LABS: Risk Ratio 4.21; VLDL Cholesterol 36.6 MG/DL
[2022-10-23] MEDS: LEVOTHYROXINE 125 MCG TABLET PO SCH ×2 (05:46→12:34)
[2022-10-23] MEDS ORDERED: SODIUM CHLORIDE 0.9% 1,000 ML IV SCH (08:00)
[2022-10-23] MEDS ORDERED: propofoL 200 MG/20 ML VIAL IV ONE (09:35)
[2022-10-23] MEDS ORDERED: LIDOCAINE 2% 5 ML VIAL ONE (09:35)
[2022-10-23] MEDS: PANTOPRAZOLE 40 MG TABLET PO SCH (12:34)
[2022-10-23] MEDS: DOCUSATE SODIUM 100 MG CAPSULE PO SCH (12:35)
[2022-10-23] MEDS ORDERED: FOLIC ACID 1 MG TABLET PO SCH (13:00)
[2022-10-23 17:09] VITALS: BP 106/67
[2022-10-24] MEDS ORDERED: CHOLECALCIFEROL 1,000 UNIT TABLET PO SCH (09:00)
== END 2022-10-23 17:20 | disposition home or self-care (01) | DRG 644 ==
LOC: N.ED 14:25 → N.TELEN 14:25 → SUATTDRO 10-22 02:36
PROVIDERS: ADMIT Internal Medicine; ATTEND Hospitalist